=== PATIENT | female | born 1935 | race Caucasian/White ===

== ENCOUNTER 2020-07-16 20:10 | Emergency (ER) | payer MEDICARE, BC, SELFPAY ==
[2020-07-16 20:12] VITALS: BP 130/60; PULSE 79; RESP 20; TEMP 36.5; O2SAT 97
--- NOTE | 2020-07-16 20:28 | DI.CT.S_ITS ---
PROCEDURE: CT STROKE INDICATIONS: gait disturbance, global disorientation TECHNIQUE: Noncontrast 4.5 mm thick angled axial sections acquired from the foramen magnum to the vertex, with coronal reformats. For radiation dose reduction, the following was used: automated exposure control, adjustment of mA and/or kV according to patient size. COMPARISON: None. FINDINGS: Image quality: Excellent. CSF spaces: Basal cisterns are patent. No extra-axial fluid collections. The ventricles are symmetric in size and shape. Brain: No intracranial bleeds or masses. There is cerebral volume loss for age, with resultant ventricular and sulcal prominence. There are periventricular and deep white matter chronic small vessel ischemic changes. There is intracranial internal carotid artery atherosclerosis. Skull and face: Calvarium and visualized facial bones appear intact, without suspicious lesions. Sinuses: Visualized sinuses and mastoids are clear. IMPRESSION: Mild microvascular atherosclerotic change in the deep white matter of each hemisphere, no sign of hemorrhage or stroke, no skull base arterial thrombosis is found. Findings called to the emergency room physician caring for the patient at 8:50 p.m. This study fulfills neurological imaging criteria for inclusion or exclusion of acute stroke therapies based on available published neurological guidelines. Dictated by: Tanner Calvo M.D. on 07/16/2020 at 20:48 Approved by: Tanner Calvo M.D. on 07/16/2020 at 20:51
[2020-07-16 20:55] VITALS: BP 173/74; PULSE 70; O2SAT 98
[2020-07-16 21:00] VITALS: BP 164/71; PULSE 64; RESP 15; O2SAT 98
[2020-07-16 21:01] LABS: Add Manual Diff / Slide Review NO; Basophils Absolute Auto 100 /uL (0-100); Basophils Percent Auto 0.9 % (0-2); Eosinophils Absolute Auto 200 /uL (0-450); Eosinophils Percent Auto 2.5 % (2-4); Hematocrit 33.2 % (36-46); Hemoglobin 11.6 g/dL (12.0-16.0); Lymphocytes Absolute Auto 2000 /uL (1100-4500); Lymphocytes Percent Auto 26.2 % (25-40); Mean Corpuscular HGB Conc 34.9 % (30-36); Mean Corpuscular Hemoglobin 32.3 PG (26-34); Mean Corpuscular Volume 92.5 fL (80-100); Monocytes Absolute Auto 600 /uL (0-900); Monocytes Percent Auto 7.6 % (3-14); Neutrophils Absolute Auto 4800 /uL (1500-7000); Neutrophils Percent Auto 62.8 % (50-75); Platelet Count 169 X10^3/uL (150-400); Red Blood Cell Count 3.59 X10^6/uL (4.0-5.2); Red Cell Distribution Width 14.2 % (11.6-14.8); White Blood Cell Count 7.6 X10^3/uL (4.5-11.0)
[2020-07-16 21:08] LABS: Prothrombin Time 11.7 SECONDS (10.1-12.7)
[2020-07-16 21:11] LABS: PTT Partial Thromboplastin Tim 42 SECONDS (26.4-36.2)
[2020-07-16 21:13] LABS: Alanine Aminotransferase 22 IU/L (<35); Albumin Globulin Ratio 1.4 (1.0-2.8); Alkaline Phosphatase 77 U/L (38-126); Aspartate Aminotransferase 30 IU/L (14-36); BUN Creatinine Ratio 22.3 (6-22); Bilirubin Total 0.4 mg/dL (0.2-1.3); Blood Urea Nitrogen 21 mg/dL (7-17); Calcium 8.8 mg/dL (8.4-10.2); Carbon Dioxide 26 mmol/L (22-32); Chloride 109 mmol/L (98-107); Creatine Kinase 57 U/L (30-135); Estimated Glomerular Filt Rate 56.7 mL/min (>60); Globulin 2.9 g/dL (1.7-4.1); Glucose 102 mg/dL (80-110); HEMOLYSIS < 15 (0-50); Potassium 3.4 mmol/L (3.4-5.1); Sodium 139 mmol/L (137-145); Total Protein 6.9 g/dL (6.3-8.2)
[2020-07-16 21:25] LABS: Troponin I < 0.012 ng/mL (0.01-0.034)
[2020-07-16 21:30] VITALS: BP 154/69; PULSE 63; RESP 19; O2SAT 99
[2020-07-16 22:00] VITALS: BP 137/65; PULSE 62; RESP 15; O2SAT 98
[2020-07-16] MEDS: SODIUM CHLORIDE 0.9% 1,000 ML 150 ML IV (22:02)
--- NOTE | 2020-07-16 22:02 | ED.NEUROSD ---
HPI - Neuro Symptoms/Deficit General Chief Complaint: Neuro Symptoms/Deficit Stated Complaint: feels disoriented Time Seen by Provider: 07/16/20 20:27 Source: patient and family Mode of arrival: Wheelchair History of Present Illness HPI Narrative: 84-year-old woman currently living at [facility] with no significant medical issues that reported history of decreased overall activity level presents complaining that she feels unwell. She is very vague in her findings. She reports she was sitting watching a movie today when she stood up she felt that ?something simply was not right. There are no acute neurologic findings, she describes no fever cough chills, chest pain, dyspnea, exertional dyspnea, lower extremity edema, abdominal pain, flank pain, dysuria, hematuria. She notes no headache or asymmetries to movement to use of her extremities. On Anticoagulants: No Related Data Home Medications Medication Instructions Recorded Confirmed atorvastatin 20 mg tablet 20 mg PO DAILY 04/25/20 04/25/20 Previous Rx's Medication Instructions Recorded acetaminophen 300 mg-codeine 30 mg 1 tab PO BID PRN #14 tab 04/25/20 tablet zolpidem 5 mg tablet 5 mg PO BEDTIME #30 tab 07/02/20 sulfamethoxazole-trimethoprim 1 tab PO BID #10 tab 07/16/20 [Bactrim DS] sulfamethoxazole-trimethoprim 1 tab PO BID #10 tab 07/16/20 [Bactrim DS] Allergies Allergy/AdvReac Type Severity Reaction Status Date / Time No Known Drug Allergies Allergy Unverified 04/25/20 13:45 Review of Systems Review of Systems ROS Unobtainable: All systems reviewed & are unremarkable except as noted in HPI and below Hematologic/Lymphatic On Anticoagulants: No Patient History Social History Smoking Status: Former smoker Smoking Status: Former smoker Exam Narrative Exam Narrative: General: Healthy appearing, in no acute distress. Cooperative and able to add to history. Well-nourished well-developed HEENT: Moist mucous membranes, normal sclera with reactive pupils, Neck: No JVD, supple Respiratory: Lungs are clear to auscultation, no wheezing no rales no rhonchi. Full and symmetrical air movement Cardiac: Regular rate and rhythm no murmurs no bruits Abdomen: Soft, nontender, good bowel tones, no flank pain Skin: Warm and dry, no rashes Neurologic: Globally slowed but Grossly neurologically intact with no obvious asymmetries or abnormalities Extremities: No trauma, well perfused Psych: Cooperative, appropriate insight and affect Initial Vital Signs Initial Vital Signs: Vital Signs Temperature 97.7 F 07/16/20 20:12 Pulse Rate 79 07/16/20 20:12 Respiratory Rate 20 07/16/20 20:12 Blood Pressure 130/60 07/16/20 20:12 Pulse Oximetry 97 07/16/20 20:12 Course Orders Ordered: ED Orders 07/16/20 20:28 CT Stroke Stat EKG-12 Lead Stat 07/16/20 20:55 Complete Blood Count AUTO DIFF Stat Comprehensive Metabolic Panel Stat Partial Thromboplastin Time Stat Prothrombin Time INR Stat Troponin & CK Cardiac Panel Stat 07/16/20 22:30 Urine Culture Stat Urine Microscopic Stat Discontinued Medications Sodium Chloride (Normal Saline 0.9%) 1,000 mls @ 150 mls/hr IV CONT MAGI Last Infusion: 07/16/20 22:46 Dose: 0 mls/hr Documented by: Admin: 07/16/20 22:02 Dose: 150 mls/hr Documented by: BLAKE Trimethoprim/Sulfamethoxazole (Trimeth/Sulfa 160/800 (Ds) Tablet) 1 tab PO NOW ONE Stop: 07/16/20 22:46 Last Admin: 07/16/20 22:49 Dose: 1 tab Documented by: BLAKE Vital Signs Vital signs: Vital Signs - 8 hr 07/16/20 20:12 07/16/20 20:55 07/16/20 21:00 Temperature 97.7 F Pulse Rate 79 70 64 Respiratory Rate 20 15 Blood Pressure 130/60 173/74 H 164/71 H Pulse Oximetry 97 98 98 07/16/20 21:30 07/16/20 22:00 Temperature Pulse Rate 63 62 Respiratory Rate 19 15 Blood Pressure 154/69 H 137/65 Pulse Oximetry 99 98 MDM - Neuro Symptoms/Deficit Medical Records Attestation: I reviewed the patient's medical records. Lab Data Attestation: I reviewed the patient's lab results. Result diagrams: 07/16/20 20:55 07/16/20 20:55 Labs: Lab Results 07/16/20 07/16/20 07/16/20 Range/Units 20:55 20:55 20:55 WBC 7.6 (4.5-11.0) X10^3/uL RBC 3.59 L (4.0-5.2) X10^6/uL Hgb 11.6 L (12.0-16.0) g/dL Hct 33.2 L (36-46) % MCV 92.5 (80-100) fL MCH 32.3 (26-34) PG MCHC 34.9 (30-36) % RDW 14.2 (11.6-14.8) % Plt Count 169 (150-400) X10^3/uL Neut % (Auto) 62.8 (50-75) % Lymph % (Auto) 26.2 (25-40) % [place] % (Auto) 7.6 (3-14) % Eos % (Auto) 2.5 (2-4) % Baso % (Auto) 0.9 (0-2) % Neut # (Auto) 4800 (4912-0498) /uL Lymph # (Auto) 2000 (6920-4831) /uL [place] # (Auto) 600 (0-900) /uL Eos # (Auto) 200 (0-450) /uL Baso # (Auto) 100 (0-100) /uL PT 11.7 (10.1-12.7) SECONDS INR 1.0 (0.9-1.3) APTT 42 H (26.4-36.2) SECONDS Sodium 139 (137-145) mmol/L Potassium 3.4 (3.4-5.1) mmol/L Chloride 109 H (98-107) mmol/L Carbon Dioxide 26 (22-32) mmol/L BUN 21 H (7-17) mg/dL Creatinine 0.94 (0.52-1.04) mg/dL Estimated GFR 56.7 L (>60) mL/min BUN/Creatinine Ratio 22.3 H (6-22) Glucose 102 (80-110) mg/dL Calcium 8.8 (8.4-10.2) mg/dL Total Bilirubin 0.4 (0.2-1.3) mg/dL AST 30 (14-36) IU/L ALT 22 (<35) IU/L Alkaline Phosphatase 77 (38-126) U/L Total Creatine Kinase 57 (30-135) U/L CK-MB (CK-2) TNP CK-MB (CK-2) Rel Index TNP Troponin I < 0.012 (0.01-0.034) ng/mL Total Protein 6.9 (6.3-8.2) g/dL Albumin 4.0 (3.5-5.0) g/dL Globulin 2.9 (1.7-4.1) g/dL Albumin/Globulin Ratio 1.4 (1.0-2.8) Urine RBC (0-5/HPF) Urine WBC (0-5/HPF) Ur Squamous Epith Cells (0-5/HPF) Urine Bacteria (None) Ur Culture Indicated? 07/16/20 Range/Units 22:30 WBC (4.5-11.0) X10^3/uL RBC (4.0-5.2) X10^6/uL Hgb (12.0-16.0) g/dL Hct (36-46) % MCV (80-100) fL MCH (26-34) PG MCHC (30-36) % RDW (11.6-14.8) % Plt Count (150-400) X10^3/uL Neut % (Auto) (50-75) % Lymph % (Auto) (25-40) % [place] % (Auto) (3-14) % Eos % (Auto) (2-4) % Baso % (Auto) (0-2) % Neut # (Auto) (7244-2290) /uL Lymph # (Auto) (2826-9451) /uL Haralson # (Auto) (0-900) /uL Eos # (Auto) (0-450) /uL Baso # (Auto) (0-100) /uL PT (10.1-12.7) SECONDS INR (0.9-1.3) APTT (26.4-36.2) SECONDS Sodium (137-145) mmol/L Potassium (3.4-5.1) mmol/L Chloride (98-107) mmol/L Carbon Dioxide (22-32) mmol/L BUN (7-17) mg/dL Creatinine (0.52-1.04) mg/dL Estimated GFR (>60) mL/min BUN/Creatinine Ratio (6-22) Glucose (80-110) mg/dL Calcium (8.4-10.2) mg/dL Total Bilirubin (0.2-1.3) mg/dL AST (14-36) IU/L ALT (<35) IU/L Alkaline Phosphatase (38-126) U/L Total Creatine Kinase (30-135) U/L CK-MB (CK-2) CK-MB (CK-2) Rel Index Troponin I (0.01-0.034) ng/mL Total Protein (6.3-8.2) g/dL Albumin (3.5-5.0) g/dL Globulin (1.7-4.1) g/dL Albumin/Globulin Ratio (1.0-2.8) Urine RBC None seen (0-5/HPF) Urine WBC 5-10/hpf H (0-5/HPF) Ur Squamous Epith Cells 1-5 /hpf (0-5/HPF) Urine Bacteria Many (>30) H (None) Ur Culture Indicated? Specimen cultured Point of Care Testing Glucose POC 104 Urine Dip Bedside Urine Glucose Negative Bedside Urine Bilirubin - Negative Bedside Urine Ketone - Negative Urine Specific [place] 1.015 Bedside Urine Occult Blood - Negative Bedside Urine pH 6.0 Bedside Urine Protein - Negative Bedside Urine Urobilinogen - Negative Bedside Urine Nitrite + Positive Bedside Urine Leukocytes + [address] scan - head: Radiologist's Impression: FINDINGS: Image quality: Excellent. CSF spaces: Basal cisterns are patent. No extra-axial fluid collections. The ventricles are symmetric in size and shape. Brain: No intracranial bleeds or masses. There is cerebral volume loss for age, with resultant ventricular and sulcal prominence. There are periventricular and deep white matter chronic small vessel ischemic changes. There is intracranial internal carotid artery atherosclerosis. Skull and face: Calvarium and visualized facial bones appear intact, without suspicious lesions. Sinuses: Visualized sinuses and mastoids are clear. IMPRESSION: Mild microvascular atherosclerotic change in the deep white matter of each hemisphere, no sign of hemorrhage or stroke, no skull base arterial thrombosis is found. Findings called to the emergency room physician caring for the patient at 8:50 p.m. This study fulfills neurological imaging criteria for inclusion or exclusion of acute stroke therapies based on available published neurological guidelines. Dictated by: Tanner Calvo M.D. on 07/16/2020 at 20:48 ECG Data Attestation: I personally reviewed and interpreted this ECG as follows: Interpretation: Sinus rhythm at a rate of 66 Normal axis, normal intervals No acute ischemic changes MDM Narrative Medical decision making narrative: 84-year-old woman who is in assisted living facility. Her daughter notes that she sits most of the time and does not drink enough water. Apparently she was watching a movie she went to stand up today and just felt that something was off. She could not be more specific than that. Workup is entirely benign. No evidence of a stroke, CT scan is unremarkable, lab work is reassuring with no evidence of acute coronary syndrome, liver failure, renal failure. She has mild stable anemia. Clinical exam is entirely benign. Urine dip has both leukocytes and nitrates. Going to opt to treat that as a urinary tract infection with 5 days of Septra 1st dose given in the emergency department. Urine has been sent to the lab. At this point patient is safe for home discharge Discharge Plan Departure Patient Disposition: Home Clinical Impression: Acute UTI Instructions: DI for Urinary Tract Infection (UTI) Activity Restrictions/Additional Instructions: Thank you for coming in today Your workup was very reassuring. There is no evidence of life-threatening issues. Specifically you are not having a stroke, heart attack, kidney failure, liver failure, overwhelming infection or severe dehydration. Your urinalysis does look like he may be developing a bladder infection. I have given you a single dose of Septra, and antibiotic, in the emergency room tonight and have given you a prescription to fill tomorrow. Please take 1 pill in the morning 1 pill at night for the next 5 days. If you feel that you are getting worse, please return to the emergency department Prescriptions: New sulfamethoxazole-trimethoprim [Bactrim DS] 800-160 mg tablet 1 tab PO BID Qty: 10 RF: 0 sulfamethoxazole-trimethoprim [Bactrim DS] 800-160 mg tablet 1 tab PO BID Qty: 10 RF: 0 No Action zolpidem 5 mg tablet 5 mg PO BEDTIME Qty: 30 RF: 3 atorvastatin 20 mg tablet 20 mg PO DAILY RF: 0 acetaminophen-codeine 300-30 mg tablet 1 tab PO BID PRN (Reason: pain) Qty: 14 RF: 0 Referrals: Arnol Diego MD [Primary Care Provider] -
[2020-07-16 22:38] LABS: RBC Urine None Seen (0-5/HPF)
[2020-07-16 22:46] LABS: Bacteria Urine Many (>30); Squamous Epithelial Cell Urine 1-5 /HPF (0-5/HPF); WBC Urine 5-10/HPF (0-5/HPF)
[2020-07-16 22:47] LABS: Culture Indicated Urine Specimen Cultured
[2020-07-16] MEDS: TRIMETH/SULFA 160/800 (DS) TABLET 1 TAB PO (22:49)
== END 2020-07-16 22:55 | disposition home or self-care (01) ==
PROVIDERS: Emergency Provider Emergency Medicine; PCP Student in an Organized Health Care Education/Training Program
DX: N39.0 Urinary tract infection, site not specified (principal)
CPT/HCPCS: 36415; 70450; 80053; 81003; 81015; 82550; 82962; 84484; 85025; 85610; 85730; 87077; 87086; 87186; 93005; 96360; 99284

== ENCOUNTER → 2020-09-10 15:23 | Outpatient (CLI) | payer MEDICARE, BC, SELFPAY ==
[2020-09-10 16:15] LABS: Cholesterol 220 mg/dL (140-199); HDL Cholesterol 65 mg/dL (40-60); LDL Cholesterol Calculated 106 mg/dL (<100); Triglycerides 247 mg/dL (35-150)
== END ==
PROVIDERS: PCP Student in an Organized Health Care Education/Training Program; Referring Provider Student in an Organized Health Care Education/Training Program; Visit Provider Student in an Organized Health Care Education/Training Program
DX: E78.2 Mixed hyperlipidemia (principal)
CPT/HCPCS: 36415; 80061

== ENCOUNTER → 2021-08-18 08:27 | Outpatient (CLI) | payer MEDICARE, BC, SELFPAY ==
[2021-08-18 10:19] LABS: Add Manual Diff / Slide Review NO; Basophils Absolute Auto 0 /uL (0-100); Basophils Percent Auto 0.6 % (0-2); Eosinophils Absolute Auto 100 /uL (0-450); Eosinophils Percent Auto 2.1 % (2-4); Hematocrit 35.5 % (36-46); Hemoglobin 12.5 g/dL (12.0-16.0); Lymphocytes Absolute Auto 1800 /uL (1100-4500); Lymphocytes Percent Auto 27.3 % (25-40); Mean Corpuscular HGB Conc 35.2 % (30-36); Mean Corpuscular Hemoglobin 32.3 PG (26-34); Mean Corpuscular Volume 91.8 fL (80-100); Monocytes Absolute Auto 400 /uL (0-900); Monocytes Percent Auto 6.7 % (3-14); Neutrophils Absolute Auto 4100 /uL (1500-7000); Neutrophils Percent Auto 63.3 % (50-75); Platelet Count 177 X10^3/uL (150-400); Red Blood Cell Count 3.86 X10^6/uL (4.0-5.2); Red Cell Distribution Width 14.3 % (11.6-14.8); White Blood Cell Count 6.5 X10^3/uL (4.5-11.0)
[2021-08-18 10:33] LABS: Alanine Aminotransferase 22 IU/L (<35); Albumin Globulin Ratio 1.5 (1.0-2.8); Alkaline Phosphatase 88 U/L (38-126); Aspartate Aminotransferase 27 IU/L (14-36); BUN Creatinine Ratio 18.2 (6-22); Blood Urea Nitrogen 16 mg/dL (7-17); Calcium 9.1 mg/dL (8.4-10.2); Carbon Dioxide 20 mmol/L (22-32); Chloride 112 mmol/L (98-107); Cholesterol 196 mg/dL (140-199); Estimated Glomerular Filt Rate > 60.0 mL/min (>60); Globulin 2.7 g/dL (1.7-4.1); Glucose 95 mg/dL (80-110); HDL Cholesterol 76 mg/dL (40-60); HEMOLYSIS < 15 (0-50); LDL Cholesterol Calculated 89 mg/dL (<100); Potassium 4.3 mmol/L (3.4-5.1); Sodium 144 mmol/L (137-145); Total Protein 6.7 g/dL (6.3-8.2); Triglycerides 157 mg/dL (35-150)
== END ==
PROVIDERS: PCP Family Medicine; Referring Provider Family Medicine; Visit Provider Family Medicine
DX: Z13.9 Encounter for screening, unspecified (principal); E78.2 Mixed hyperlipidemia; R60.0 Localized edema
CPT/HCPCS: 36415; 80053; 80061; 85025

== ENCOUNTER → 2022-12-10 14:37 | Outpatient (CLI) | payer MEDICARE, BC, SELFPAY ==
--- NOTE | 2022-12-10 14:39 | DI.ECHO.S_ITS ---
[facility]---------+ [facility] +---------+ : : [address] : : : : [id number] : : : : Phone: [phone]---------+ Echocardiogram Report + + :Name: JAVIER SHABAZZ Study Date: 12/10/2022 Height: 60 in : :[facility] ReadingLocation: Weight: 170 lb : : Gender: Female BSA: 1.7 m2 : :: 1935 Age: 87 yrs BP: 139/78 mmHg: :Reason For Study: Lower Extremity Edema : :Ordering Physician: KIEL, : :CHRISTOPHER Performed By: Alejandrina Sanford : :Referring: CHRISTOPHER DYSON : + + Interpretation Summary A two-dimensional transthoracic echocardiogram with color flow and Doppler was performed in limited views only. The ejection fraction is estimated to be 60-65%. There are no obvious focal wall motion abnormalities noted but poor endocardial definition reduces the sensitivity for the detection of such. The right ventricular systolic pressure is estimated to be at least 27 mmHg based on an estimated right atrial pressure of 3 mm Hg. Procedure: A two-dimensional transthoracic echocardiogram with color flow and Doppler was performed in limited views only. The study quality was technically adequate. There is no prior echocardiogram noted for this patient. Left Ventricle: The left ventricle is normal in size. The ejection fraction is estimated to be 60-65%. There are no obvious focal wall motion abnormalities noted but poor endocardial definition reduces the sensitivity for the detection of such. Tricuspid Valve: There is trace tricuspid regurgitation. The right ventricular systolic pressure is estimated to be at least 27 mmHg based on an estimated right atrial pressure of 3 mm Hg. Great Vessels: The IVC is of normal diameter and collapses greater than 50% with a sniff. This suggests a low right atrial pressure of 3 mm Hg. Pericardium/ Pleura There is no pericardial effusion. MMode/2D Measurements & Calculations LVLs ap4: 3.8 cm LVLd ap2: 5.5 cm LVLs ap2: 4.9 cm Doppler Measurements & Calculations TR max francesco: 243.5 cm/sec TR max P.0 mmHg Reading Physician:BIA
== END ==
PROVIDERS: PCP Family Medicine; Referring Provider Family Medicine; Visit Provider Family Medicine
DX: R60.0 Localized edema (principal)
CPT/HCPCS: 93307

== ENCOUNTER → 2023-06-16 13:15 | Outpatient (CLI) | payer MEDICARE, BC, SELFPAY | PROVIDERS: PCP Family Medicine; Visit Provider Nurse Practitioner Family | DX: R30.0 Dysuria (principal) | CPT/HCPCS: 87086 ==

== ENCOUNTER 2024-06-07 16:04 | Inpatient (IN) | payer MEDICARE, OTHER, SELFPAY ==
[2024-06-07] VITALS (25 sets, daily range): BP systolic 102–205; BP diastolic 59–114; PULSE 91–99; RESP 15–26; TEMP 37.1–38.4; O2SAT 93–96; BMI 32.1
--- NOTE | 2024-06-07 16:11 | ED.FALL ---
HPI - Fall <Cuong Mayes DO - Last Filed: 06/15/24 07:00> General Chief Complaint: Fall Stated Complaint: Fall-Hip Pain Time Seen by Provider: 06/07/24 16:10 History of Present Illness HPI Narrative: 88-year-old female history of hyperlipidemia, dementia, comes into the ED from facility via EMS for evaluation of fall. According to EMS patient had 2 falls earlier today. Patient states that she fell twice the 1st time was attempting to get out of her chair, states that at that time she was able to get up and ambulate to her baseline with her walker, she states that the 2nd time was using her walker when she tripped and fell. She states at that time she did fall to her left side landing on left hip left head denies any loss of consciousness not on any blood thinners.. Patient states that she is currently feeling completely normal, states that she does have a history of left hip pain is in the process of seeing orthopedic surgery for this, states that it is not any worse or any better than normal. At time of evaluation patient A&O x4 moving all 4 extremities appropriately NIH of 0 Related Data Previous Rx's Medication Instructions Recorded hydrocodone 5 mg-acetaminophen 325 1 tab PO Q4H PRN Pain, Moderate 06/11/24 mg tablet (4-6) #20 tabs zolpidem 5 mg tablet 5 mg PO BEDTIME #30 tabs 06/11/24 Allergies Allergy/AdvReac Type Severity Reaction Status Date / Time No Known Drug Allergies Allergy Verified 06/07/24 16:11 Review of Systems <Cuong Mayes DO - Last Filed: 06/15/24 07:00> Review of Systems Narrative: General: Ground level fall, Denies fever, chills, weight loss HEENT: Denies headache, eye drainage, eye irritation, head trauma, sore throat, voice change Cardiovascular: Denies any chest pain, palpitations, shortness of breath, tachycardia Respiratory: Denies any shortness of breath, cough, wheeze, stridor GI/: Denies any abdominal pain, nausea, vomiting, diarrhea, bright red blood per rectum, melanotic stools, urinary frequency, urinary retention, dysuria, hematuria MSK: Positive left hip pain, Skin: Denies any rashes, lesions, discoloration Neuro: Denies any headache, lightheadedness, dizziness, fainting, weakness Psych: Denies SI/HI Patient History <Cuong Mayes DO - Last Filed: 06/15/24 07:00> Medical History Dementia Social History household members: none Smoking Status: Former smoker second hand exposure: No alcohol intake: current substance use type: does not use Smoking Status: Former smoker Exam <Cuong Mayes DO - Last Filed: 06/15/24 07:00> Narrative Exam Narrative: General: Cooperative, comfortable, well-developed, not in acute distress HEENT: Normocephalic, atraumatic, PERRLA, normal sclera, eyelids normal, Neck: Active full range of motion, atraumatic Chest: Normal to inspection, negative crepitus, no overlying erythema ecchymosis Respiratory: Normal respiratory effort, not in acute respiratory distress, clear to auscultation bilaterally negative cough, wheeze, tachypnea, rhonchi, rales Cardiology: Regular rate rhythm negative gallop, murmur, rubs GI/: Normal to inspection, soft, nonrigid, no tenderness to palpation, exam deferred MSK: Full range of active range of motion of all 4 extremities, atraumatic, no tenderness to palpation of any bony prominences neurovascularly intact bilateral upper and lower extremities Skin: No rashes lesions noted Neuro: Alert awake oriented x3, moves all 4 extremities spontaneously, cranial nerves intact, able to answer all questions appropriately follows commands appropriately, NIH of 0 Psych: Cooperative, negative suicidal or homicidal ideations Initial Vital Signs Initial Vital Signs: Vital Signs Pulse Oximetry 96 06/07/24 16:09 <Ramon Galeas DO - Last Filed: 06/07/24 22:06> Initial Vital Signs Initial Vital Signs: Vital Signs Pulse Oximetry 96 06/07/24 16:09 Course <Cuong Mayes DO - Last Filed: 06/15/24 07:00> Orders Ordered: Discontinued Medications Acetaminophen (Acetaminophen 325 Mg Tablet) 650 mg PO Q6H PRN PRN Reason: Fever/Mild Pain (1-3) Last Admin: 06/07/24 21:10 Dose: 650 mg Documented By: BRITTNY Hydrocodone Bitart/Acetaminophen (Hydrocodone/Acet 5/325 Tablet) 1 tab PO Q4H PRN PRN Reason: Pain, Moderate (4-6) Haloperidol (Haloperidol 5 Mg/Ml Vial) 5 mg IV NOW ONE Stop: 06/09/24 01:04 Last Admin: 06/09/24 02:01 Dose: 5 mg Documented By: ASAD Heparin Sodium (Porcine) (Heparin 5,000 Unit/Ml Vial) 5,000 unit SUBCUT BID [facility] Last Admin: 06/11/24 09:53 Dose: 5,000 unit Documented By: Admin: 06/10/24 21:12 Dose: Not Given Documented By: Admin: 06/10/24 10:23 Dose: 5,000 unit Documented By: Admin: 06/09/24 20:35 Dose: Not Given Documented By: ANJU Hydromorphone HCl (Hydromorphone 0.5 Mg Inj) 0.5 mg IV Q2H PRN PRN Reason: Pain, Severe (7-10) Last Admin: 06/09/24 03:25 Dose: 0.5 mg Documented By: Admin: 06/08/24 02:05 Dose: 0.5 mg Documented By: Admin: 06/07/24 23:13 Dose: 0.5 mg Documented By: JEAN Ceftriaxone Sodium 1,000 mg/ (Sodium Chloride) 100 mls @ 200 mls/hr IV NOW ONE Stop: 06/07/24 18:49 Last Infusion: 06/07/24 20:20 Dose: Infused Documented By: Admin: 06/07/24 19:46 Dose: 200 mls/hr Documented By: BRITTNY Sodium Chloride (Normal Saline 0.9%) 1,000 mls @ 75 mls/hr IV CONT [facility] Last Infusion: 06/09/24 09:14 Dose: 0 mls/hr Documented By: Admin: 06/08/24 23:27 Dose: 75 mls/hr Documented By: Infusion: 06/08/24 23:26 Dose: Infused Documented By: Admin: 06/08/24 10:06 Dose: 75 mls/hr Documented By: Infusion: 06/08/24 10:06 Dose: Infused Documented By: Infusion: 06/07/24 23:30 Dose: 75 mls/hr Documented By: Infusion: 06/07/24 22:04 Dose: 0 mls/hr Documented By: Admin: 06/07/24 20:22 Dose: 75 mls/hr Documented By: BRITTNY Ceftriaxone Sodium 1,000 mg/ (Sodium Chloride) 100 mls @ 200 mls/hr IV Q24H [facility]I Last Admin: 06/10/24 20:53 Dose: 200 mls/hr Documented By: Infusion: 06/09/24 23:54 Dose: Infused Documented By: Admin: 06/09/24 20:18 Dose: 200 mls/hr Documented By: Infusion: 06/09/24 00:33 Dose: Infused Documented By: Admin: 06/08/24 21:41 Dose: 200 mls/hr Documented By: ASAD Magnesium Sulfate (Magnesium Sulfate) 20 gm in 500 mls @ 50 mls/hr IV CONT [facility] Last Admin: 06/09/24 03:14 Dose: Not Given Documented By: ASAD Magnesium Sulfate (Magnesium Sulfate) 2 gm in 50 mls @ 25 mls/hr IV NOW ONE Stop: 06/09/24 05:10 Last Infusion: 06/09/24 05:53 Dose: Infused Documented By: ASAD Co-signed By: TALON Admin: 06/09/24 03:22 Dose: 25 mls/hr Documented By: ASAD Co-signed By: TALON Lidocaine HCl (Lidocaine 2% (Glydo) 6 Ml Gel) 6 ml TOP NOW ONE Stop: 06/07/24 17:02 Last Admin: 06/07/24 17:15 Dose: 6 ml Documented By: BRITTNY Magnesium Chloride (Magnesium Chloride 64 Mg Tablet) 128 mg PO NOW ONE Stop: 06/09/24 07:31 Last Admin: 06/09/24 08:26 Dose: 128 mg Documented By: MARLEE Morphine Sulfate (Morphine 2 Mg/Ml Inj) 2 mg IV NOW ONE Stop: 06/07/24 17:07 Last Admin: 06/07/24 17:10 Dose: 2 mg Documented By: BRITTNY Morphine Sulfate (Morphine 2 Mg/Ml Inj) 2 mg IV NOW ONE Stop: 06/07/24 17:29 Last Admin: 06/07/24 17:35 Dose: 2 mg Documented By: BRITTNY Naloxone HCl (Naloxone 0.4 Mg/Ml Vial) 0.2 mg IV Q2MIN PRN PRN Reason: Opiate Reversal Ondansetron HCl (Ondansetron 4 Mg/2 Ml Inj) 4 mg IV Q8HR PRN PRN Reason: Nausea And Vomiting Oseltamivir Phosphate (Oseltamivir 75 Mg Capsule) 75 mg PO BID [facility] Last Admin: 06/11/24 09:53 Dose: 75 mg Documented By: Admin: 06/10/24 20:53 Dose: 75 mg Documented By: Admin: 06/10/24 10:23 Dose: 75 mg Documented By: Admin: 06/09/24 20:18 Dose: 75 mg Documented By: Admin: 06/09/24 08:26 Dose: 75 mg Documented By: Admin: 06/08/24 22:02 Dose: Not Given Documented By: Admin: 06/08/24 13:30 Dose: 75 mg Documented By: MARLEE Potassium Chloride (Potassium Chloride 20 Meq/15 Ml Udc) 40 meq PO NOW ONE Stop: 06/09/24 06:00 Last Admin: 06/09/24 06:39 Dose: 40 meq Documented By: ASAD Potassium Phos/Sodium Phos (Sodium,Potassium Phosphates Packet) 2 each PO NOW ONE Stop: 06/10/24 08:16 Last Admin: 06/10/24 10:23 Dose: 2 each Documented By: TAPAN Quetiapine Fumarate (Quetiapine 25 Mg Tablet) 12.5 mg PO Q4H PRN PRN Reason: mild agitation Last Admin: 06/09/24 23:53 Dose: 12.5 mg Documented By: Admin: 06/09/24 18:27 Dose: 12.5 mg Documented By: MARLEE Quetiapine Fumarate (Quetiapine 100 Mg Tablet) 100 mg PO BID [facility] Quetiapine Fumarate (Quetiapine 25 Mg Tablet) 25 mg PO BEDTIME [facility] Last Admin: 06/10/24 20:53 Dose: 25 mg Documented By: Admin: 06/09/24 20:18 Dose: 25 mg Documented By: ANJU Sodium Chloride (Sodium Chloride 0.9% Flush) 10 ml IV BID [facility] Last Admin: 06/11/24 09:54 Dose: 10 ml Documented By: Admin: 06/10/24 21:18 Dose: 10 ml Documented By: Admin: 06/10/24 10:23 Dose: 10 ml Documented By: Admin: 06/09/24 20:18 Dose: 10 ml Documented By: Admin: 06/09/24 08:26 Dose: 10 ml Documented By: Admin: 06/08/24 21:44 Dose: 10 ml Documented By: ASAD Sodium Chloride (Sodium Chloride 0.9% Flush) 10 ml IV PRN PRN PRN Reason: Flush Last Admin: 06/09/24 02:03 Dose: 10 ml Documented By: ASAD Zolpidem Tartrate (Zolpidem 5 Mg Tablet) 5 mg PO BEDTIME [facility] Last Admin: 06/10/24 20:53 Dose: 5 mg Documented By: Admin: 06/09/24 23:53 Dose: 5 mg Documented By: Admin: 06/08/24 21:43 Dose: 5 mg Documented By: Admin: 06/07/24 23:13 Dose: 5 mg Documented By: JEAN Vital Signs Vital signs: Vital Signs - 8 hr 06/07/24 16:09 06/07/24 16:11 06/07/24 16:13 Temperature 98.7 F Pulse Rate 99 H 96 H Respiratory Rate 15 Blood Pressure 205/95 H Pulse Oximetry 96 96 96 Oxygen Delivery Method Room Air 06/07/24 16:13 06/07/24 16:37 06/07/24 16:39 Temperature Pulse Rate 96 H 96 H Respiratory Rate Blood Pressure 139/82 Pulse Oximetry 96 95 Oxygen Delivery Method 06/07/24 16:39 06/07/24 16:58 06/07/24 16:58 Temperature Pulse Rate 96 H Respiratory Rate 26 H Blood Pressure 196/86 H 175/94 H Pulse Oximetry 96 Oxygen Delivery Method 06/07/24 17:00 06/07/24 17:00 06/07/24 17:30 Temperature Pulse Rate 96 H Respiratory Rate 24 Blood Pressure 181/95 H 171/114 H Pulse Oximetry 96 Oxygen Delivery Method 06/07/24 17:30 06/07/24 17:53 06/07/24 17:53 Temperature 99.7 F H Pulse Rate 95 H 94 H Respiratory Rate 24 21 Blood Pressure 102/69 Pulse Oximetry 96 95 Oxygen Delivery Method 06/07/24 18:00 06/07/24 18:00 06/07/24 18:15 Temperature 99.5 F 99.7 F H Pulse Rate 92 H 93 H Respiratory Rate 19 20 Blood Pressure 146/67 H Pulse Oximetry 95 96 Oxygen Delivery Method 06/07/24 18:15 06/07/24 18:30 06/07/24 18:30 Temperature 99.9 F H Pulse Rate 92 H Respiratory Rate 19 Blood Pressure 167/76 H 162/76 H Pulse Oximetry 94 Oxygen Delivery Method Room Air 06/07/24 18:45 06/07/24 18:45 06/07/24 19:00 Temperature 100.0 F H 100.2 F H Pulse Rate 92 H 91 H Respiratory Rate 24 19 Blood Pressure 162/74 H Pulse Oximetry 95 95 Oxygen Delivery Method 06/07/24 19:00 06/07/24 19:30 06/07/24 19:30 Temperature 100.4 F H Pulse Rate 91 H Respiratory Rate 24 Blood Pressure 161/73 H 152/68 H Pulse Oximetry 94 Oxygen Delivery Method 06/07/24 20:00 06/07/24 20:00 06/07/24 20:30 Temperature 100.6 F H 100.8 F H Pulse Rate 94 H 92 H Respiratory Rate 24 21 Blood Pressure 168/74 H Pulse Oximetry 96 95 Oxygen Delivery Method 06/07/24 21:00 06/07/24 21:01 06/07/24 21:01 Temperature 100.9 F H 100.9 F H Pulse Rate 95 H 97 H Respiratory Rate 20 24 Blood Pressure 160/70 H 160/70 H Pulse Oximetry 95 96 Oxygen Delivery Method 06/07/24 21:10 Temperature 101.1 F H Pulse Rate Respiratory Rate Blood Pressure Pulse Oximetry Oxygen Delivery Method <Ramon Galeas DO - Last Filed: 06/07/24 22:06> Orders Ordered: Discontinued Medications Acetaminophen (Acetaminophen 325 Mg Tablet) 650 mg PO Q6H PRN PRN Reason: Fever/Mild Pain (1-3) Last Admin: 06/07/24 21:10 Dose: 650 mg Documented By: BRITTNY Hydrocodone Bitart/Acetaminophen (Hydrocodone/Acet 5/325 Tablet) 1 tab PO Q4H PRN PRN Reason: Pain, Moderate (4-6) Haloperidol (Haloperidol 5 Mg/Ml Vial) 5 mg IV NOW ONE Stop: 06/09/24 01:04 Last Admin: 06/09/24 02:01 Dose: 5 mg Documented By: ASAD Heparin Sodium (Porcine) (Heparin 5,000 Unit/Ml Vial) 5,000 unit SUBCUT BID [facility] Last Admin: 06/11/24 09:53 Dose: 5,000 unit Documented By: Admin: 06/10/24 21:12 Dose: Not Given Documented By: Admin: 06/10/24 10:23 Dose: 5,000 unit Documented By: Admin: 06/09/24 20:35 Dose: Not Given Documented By: ANJU Hydromorphone HCl (Hydromorphone 0.5 Mg Inj) 0.5 mg IV Q2H PRN PRN Reason: Pain, Severe (7-10) Last Admin: 06/09/24 03:25 Dose: 0.5 mg Documented By: Admin: 06/08/24 02:05 Dose: 0.5 mg Documented By: Admin: 06/07/24 23:13 Dose: 0.5 mg Documented By: JEAN Ceftriaxone Sodium 1,000 mg/ (Sodium Chloride) 100 mls @ 200 mls/hr IV NOW ONE Stop: 06/07/24 18:49 Last Infusion: 06/07/24 20:20 Dose: Infused Documented By: Admin: 06/07/24 19:46 Dose: 200 mls/hr Documented By: BRITTNY Sodium Chloride (Normal Saline 0.9%) 1,000 mls @ 75 mls/hr IV CONT [facility] Last Infusion: 06/09/24 09:14 Dose: 0 mls/hr Documented By: Admin: 06/08/24 23:27 Dose: 75 mls/hr Documented By: Infusion: 06/08/24 23:26 Dose: Infused Documented By: Admin: 06/08/24 10:06 Dose: 75 mls/hr Documented By: Infusion: 06/08/24 10:06 Dose: Infused Documented By: Infusion: 06/07/24 23:30 Dose: 75 mls/hr Documented By: Infusion: 06/07/24 22:04 Dose: 0 mls/hr Documented By: Admin: 06/07/24 20:22 Dose: 75 mls/hr Documented By: BRITTNY Ceftriaxone Sodium 1,000 mg/ (Sodium Chloride) 100 mls @ 200 mls/hr IV Q24H MAGI Last Admin: 06/10/24 20:53 Dose: 200 mls/hr Documented By: Infusion: 06/09/24 23:54 Dose: Infused Documented By: Admin: 06/09/24 20:18 Dose: 200 mls/hr Documented By: Infusion: 06/09/24 00:33 Dose: Infused Documented By: Admin: 06/08/24 21:41 Dose: 200 mls/hr Documented By: ASAD Magnesium Sulfate (Magnesium Sulfate) 20 gm in 500 mls @ 50 mls/hr IV CONT [facility] Last Admin: 06/09/24 03:14 Dose: Not Given Documented By: ASAD Magnesium Sulfate (Magnesium Sulfate) 2 gm in 50 mls @ 25 mls/hr IV NOW ONE Stop: 06/09/24 05:10 Last Infusion: 06/09/24 05:53 Dose: Infused Documented By: ASAD Co-signed By: TALON Admin: 06/09/24 03:22 Dose: 25 mls/hr Documented By: ASAD Co-signed By: TALON Lidocaine HCl (Lidocaine 2% (Glydo) 6 Ml Gel) 6 ml TOP NOW ONE Stop: 06/07/24 17:02 Last Admin: 06/07/24 17:15 Dose: 6 ml Documented By: BRITTNY Magnesium Chloride (Magnesium Chloride 64 Mg Tablet) 128 mg PO NOW ONE Stop: 06/09/24 07:31 Last Admin: 06/09/24 08:26 Dose: 128 mg Documented By: MARLEE Morphine Sulfate (Morphine 2 Mg/Ml Inj) 2 mg IV NOW ONE Stop: 06/07/24 17:07 Last Admin: 06/07/24 17:10 Dose: 2 mg Documented By: BRITTNY Morphine Sulfate (Morphine 2 Mg/Ml Inj) 2 mg IV NOW ONE Stop: 06/07/24 17:29 Last Admin: 06/07/24 17:35 Dose: 2 mg Documented By: BRITTNY Naloxone HCl (Naloxone 0.4 Mg/Ml Vial) 0.2 mg IV Q2MIN PRN PRN Reason: Opiate Reversal Ondansetron HCl (Ondansetron 4 Mg/2 Ml Inj) 4 mg IV Q8HR PRN PRN Reason: Nausea And Vomiting Oseltamivir Phosphate (Oseltamivir 75 Mg Capsule) 75 mg PO BID [facility] Last Admin: 06/11/24 09:53 Dose: 75 mg Documented By: Admin: 06/10/24 20:53 Dose: 75 mg Documented By: Admin: 06/10/24 10:23 Dose: 75 mg Documented By: Admin: 06/09/24 20:18 Dose: 75 mg Documented By: Admin: 06/09/24 08:26 Dose: 75 mg Documented By: Admin: 06/08/24 22:02 Dose: Not Given Documented By: Admin: 06/08/24 13:30 Dose: 75 mg Documented By: MARLEE Potassium Chloride (Potassium Chloride 20 Meq/15 Ml Udc) 40 meq PO NOW ONE Stop: 06/09/24 06:00 Last Admin: 06/09/24 06:39 Dose: 40 meq Documented By: ASAD Potassium Phos/Sodium Phos (Sodium,Potassium Phosphates Packet) 2 each PO NOW ONE Stop: 06/10/24 08:16 Last Admin: 06/10/24 10:23 Dose: 2 each Documented By: TAPAN Quetiapine Fumarate (Quetiapine 25 Mg Tablet) 12.5 mg PO Q4H PRN PRN Reason: mild agitation Last Admin: 06/09/24 23:53 Dose: 12.5 mg Documented By: Admin: 06/09/24 18:27 Dose: 12.5 mg Documented By: MARLEE Quetiapine Fumarate (Quetiapine 100 Mg Tablet) 100 mg PO BID [facility] Quetiapine Fumarate (Quetiapine 25 Mg Tablet) 25 mg PO BEDTIME [facility] Last Admin: 06/10/24 20:53 Dose: 25 mg Documented By: Admin: 06/09/24 20:18 Dose: 25 mg Documented By: ANJU Sodium Chloride (Sodium Chloride 0.9% Flush) 10 ml IV BID [facility] Last Admin: 06/11/24 09:54 Dose: 10 ml Documented By: Admin: 06/10/24 21:18 Dose: 10 ml Documented By: Admin: 06/10/24 10:23 Dose: 10 ml Documented By: Admin: 06/09/24 20:18 Dose: 10 ml Documented By: Admin: 06/09/24 08:26 Dose: 10 ml Documented By: Admin: 06/08/24 21:44 Dose: 10 ml Documented By: ASAD Sodium Chloride (Sodium Chloride 0.9% Flush) 10 ml IV PRN PRN PRN Reason: Flush Last Admin: 06/09/24 02:03 Dose: 10 ml Documented By: ASAD Zolpidem Tartrate (Zolpidem 5 Mg Tablet) 5 mg PO BEDTIME [facility] Last Admin: 06/10/24 20:53 Dose: 5 mg Documented By: Admin: 06/09/24 23:53 Dose: 5 mg Documented By: Admin: 06/08/24 21:43 Dose: 5 mg Documented By: Admin: 06/07/24 23:13 Dose: 5 mg Documented By: JEAN Vital Signs Vital signs: Vital Signs - 8 hr 06/07/24 16:09 06/07/24 16:11 06/07/24 16:13 Temperature 98.7 F Pulse Rate 99 H 96 H Respiratory Rate 15 Blood Pressure 205/95 H Pulse Oximetry 96 96 96 Oxygen Delivery Method Room Air 06/07/24 16:13 06/07/24 16:37 06/07/24 16:39 Temperature Pulse Rate 96 H 96 H Respiratory Rate Blood Pressure 139/82 Pulse Oximetry 96 95 Oxygen Delivery Method 06/07/24 16:39 06/07/24 16:58 06/07/24 16:58 Temperature Pulse Rate 96 H Respiratory Rate 26 H Blood Pressure 196/86 H 175/94 H Pulse Oximetry 96 Oxygen Delivery Method 06/07/24 17:00 06/07/24 17:00 06/07/24 17:30 Temperature Pulse Rate 96 H Respiratory Rate 24 Blood Pressure 181/95 H 171/114 H Pulse Oximetry 96 Oxygen Delivery Method 06/07/24 17:30 06/07/24 17:53 06/07/24 17:53 Temperature 99.7 F H Pulse Rate 95 H 94 H Respiratory Rate 24 21 Blood Pressure 102/69 Pulse Oximetry 96 95 Oxygen Delivery Method 06/07/24 18:00 06/07/24 18:00 06/07/24 18:15 Temperature 99.5 F 99.7 F H Pulse Rate 92 H 93 H Respiratory Rate 19 20 Blood Pressure 146/67 H Pulse Oximetry 95 96 Oxygen Delivery Method 06/07/24 18:15 06/07/24 18:30 06/07/24 18:30 Temperature 99.9 F H Pulse Rate 92 H Respiratory Rate 19 Blood Pressure 167/76 H 162/76 H Pulse Oximetry 94 Oxygen Delivery Method Room Air 06/07/24 18:45 06/07/24 18:45 06/07/24 19:00 Temperature 100.0 F H 100.2 F H Pulse Rate 92 H 91 H Respiratory Rate 24 19 Blood Pressure 162/74 H Pulse Oximetry 95 95 Oxygen Delivery Method 06/07/24 19:00 06/07/24 19:30 06/07/24 19:30 Temperature 100.4 F H Pulse Rate 91 H Respiratory Rate 24 Blood Pressure 161/73 H 152/68 H Pulse Oximetry 94 Oxygen Delivery Method 06/07/24 20:00 06/07/24 20:00 06/07/24 20:30 Temperature 100.6 F H 100.8 F H Pulse Rate 94 H 92 H Respiratory Rate 24 21 Blood Pressure 168/74 H Pulse Oximetry 96 95 Oxygen Delivery Method 06/07/24 21:00 06/07/24 21:01 06/07/24 21:01 Temperature 100.9 F H 100.9 F H Pulse Rate 95 H 97 H Respiratory Rate 20 24 Blood Pressure 160/70 H 160/70 H Pulse Oximetry 95 96 Oxygen Delivery Method 06/07/24 21:10 Temperature 101.1 F H Pulse Rate Respiratory Rate Blood Pressure Pulse Oximetry Oxygen Delivery Method MDM - Fall <Cuong Mayes DO - Last Filed: 06/15/24 07:00> Differential Diagnosis Differential diagnosis: Likely other (Intracranial hemorrhage, cervical neck fracture, closed head injury, urinary tract infection) Lab Data 06/10/24 04:16 06/10/24 04:16 Labs: Lab Results 06/07/24 06/07/24 06/07/24 Range/Units 16:45 17:15 20:10 WBC 6.9 (4.5-11.0) X10^3/uL RBC 4.25 (4.0-5.2) X10^6/uL Hgb 13.3 (12.0-16.0) g/dL Hct 39.0 (36-46) % MCV 91.7 (80-100) fL MCH 31.4 (26-34) PG MCHC 34.2 (30-36) % RDW 14.1 (11.6-14.8) % Plt Count 169 (150-400) X10^3/uL Neut % (Auto) 67.0 (50-75) % Lymph % (Auto) 17.9 L (25-40) % Wood % (Auto) 13.9 (3-14) % Eos % (Auto) 0.7 L (2-4) % Baso % (Auto) 0.5 (0-2) % Neut # (Auto) 4600 (1444-1919) /uL Lymph # (Auto) 1200 (7033-9885) /uL Wood # (Auto) 1000 H (0-900) /uL Eos # (Auto) 0 (0-450) /uL Baso # (Auto) 0 (0-100) /uL Sodium 141 142 (137-145) mmol/L Potassium 3.9 3.9 (3.4-5.1) mmol/L Chloride 108 H 109 H (98-107) mmol/L Carbon Dioxide 24 25 (22-32) mmol/L BUN 29 H 26 H (7-17) mg/dL Creatinine 1.14 H 1.05 H (0.52-1.04) mg/dL Estimated GFR 46 L 51 L (>60) mL/min BUN/Creatinine Ratio 25.4 H 24.8 H (6-22) Glucose 95 93 (80-110) mg/dL Calcium 9.4 8.9 (8.4-10.2) mg/dL Total Bilirubin 1.0 (0.2-1.3) mg/dL AST 80 H (14-36) IU/L ALT 48 H (<35) IU/L Alkaline Phosphatase 78 (38-126) U/L Total Creatine Kinase 1087 H 1038 H (30-135) U/L Troponin I 0.018 0.021 (0.01-0.034) ng/mL Total Protein 7.4 (6.3-8.2) g/dL Albumin 4.2 (3.5-5.0) g/dL Globulin 3.2 (1.7-4.1) g/dL Albumin/Globulin Ratio 1.3 (1.0-2.8) Lipase 58 (23-300) U/L Urine Color Yellow Urine Appearance Clear Urine pH 5.5 (4.5-8.0) Ur Specific [place] 1.025 (1.000-1.035) Urine Protein 1+ H (Negative) Urine Glucose (UA) Negative (Negative) g/dL Urine Ketones Trace H (NEGATIVE) Urine Occult Blood 1+ H (Negative) Urine Nitrate Negative (Negative) Urine Bilirubin Negative (NEGATIVE) Urine Urobilinogen 0.2 (0.2) E.U./dL Ur Leukocyte Esterase 1+ H (NEGATIVE) Urine RBC 0-1/hpf (0-5/HPF) Urine WBC 10-30/hpf H (0-5/HPF) Ur Squamous Epith Cells 0-1 /hpf (0-5/HPF) Urine Bacteria Many (>30) H (None) Ur Culture Indicated? Specimen cultured Vol Urine Centrifuged 10ml (spun) Point of Care Testing Glucose POC 95 Imaging Data Chest x-ray: Radiologist's Impression: [place] [address] XRay Report Signed Patient: Sylvia Rincon MR#: [id number] : 1935 Acct:[id number] Age/Sex: 88 / F Date of Service: 06/07/24 Loc: ED Accession Number: [id number] Procedure: XR chest 1V Ordering Provider: Cuong Mayes D.O. PROCEDURE: XR CHEST 1V INDICATIONS: fall TECHNIQUE: One view of the chest was acquired. COMPARISON: None. FINDINGS: Surgical changes and devices: None. Lungs and pleura: Increased pulmonary markings and peribronchial cuffing. Mediastinum: Large hiatal hernia. Cardiomegaly. Bones and chest wall: No suspicious bony lesions. Overlying soft tissues appear unremarkable. IMPRESSION: Moderate pulmonary edema. Large hiatal hernia. CT scan - head: Radiologist's Impression: [place] [address] CT Scan Report Signed Patient: Sylvia Rincon MR#: [id number] : 1935 Acct:[id number] Age/Sex: 88 / F Date of Service: 06/07/24 Loc: ED Accession Number: [id number] Procedure: CT head/brain wo con Ordering Provider: Cuong Mayes D.O. PROCEDURE: CT HEAD/BRAIN WO CON INDICATIONS: fall TECHNIQUE: Noncontrast 4.5 mm thick angled axial sections acquired from the foramen magnum to the vertex, with coronal and sagittal reformats. For radiation dose reduction, the following was used: automated exposure control, adjustment of mA and/or kV according to patient size. COMPARISON: None. FINDINGS: Image quality: Suboptimal due to motion artifact. CSF spaces: Basal cisterns are patent. No extra-axial fluid collections. The ventricles are symmetric in size and shape. Brain: No intracranial bleeds or masses. There is cerebral volume loss for age, with resultant ventricular and sulcal prominence. There are periventricular and deep white matter chronic small vessel ischemic changes. There is intracranial internal carotid artery atherosclerosis. Skull and face: Calvarium and visualized facial bones appear intact, without suspicious lesions. Sinuses: Visualized sinuses and mastoids are clear. IMPRESSION: No acute intracranial pathology. CT - cervical spine: Radiologist's Impression: [place] [id number] CT Scan Report Signed Patient: Sylvia Rincon MR#: [id number] : 1935 Acct:[id number] Age/Sex: 88 / F Date of Service: 06/07/24 Loc: ED Accession Number: [id number] Procedure: CT cervical spine wo con Ordering Provider: Cuong Mayes D.O. PROCEDURE: CT CERVICAL SPINE WO CON INDICATIONS: fall TECHNIQUE: Noncontrast 3 mm thick sections acquired from the skull base to the T4 level. Sagittal and coronal reformats were then constructed. For radiation dose reduction, the following was used: automated exposure control, adjustment of mA and/or kV according to patient size. COMPARISON: None. FINDINGS: Image quality: Suboptimal due to motion artifact. Bones: No fractures or dislocations. Visualized superior ribs are intact. Moderate to severe, multilevel degenerative disc disease and diffuse facet arthrosis. Soft tissues: Prevertebral soft tissues are normal in thickness. No paravertebral hematomas. No apical pneumothoraces. Smooth interstitial thickening of the upper lungs, consistent with moderate pulmonary edema. IMPRESSION: Severely suboptimal evaluation due to motion artifact. No grossly displaced fracture. Extremity x-ray #1: Radiologist's Impression: [address] [address] XRay Report Signed Patient: Sylvia Rincon MR#: [id number] : 1935 Acct:[id number] Age/Sex: 88 / F Date of Service: 06/07/24 Loc: ED Accession Number: [id number] Procedure: XR hip w pel if done LT 2V Ordering Provider: Cuong Mayes D.O. PROCEDURE: XR HIP W PEL IF DONE LT 2V INDICATIONS: pain, s/p fall TECHNIQUE: 2 views of the hip were acquired. COMPARISON: None. FINDINGS: Bones: Suspected impacted fracture of the left femoral neck. Advanced bilateral hip osteoarthritis, with subchondral cystic change and early bony deformity. Soft tissues: No suspicious soft tissue calcifications or masses. IMPRESSION: Suspected impacted fracture of the left femoral neck. ECG Data Interpretation: EKG interpreted ED physician sinus at 96 beats per minute QTC 444, first-degree AV block, nonspecific ST changes normal axis no STEMI MDM Narrative Medical decision making narrative: 88-year-old female with a history of dementia hyperlipidemia A&O x4 at baseline with chronic history of left hip pain comes into the ED from facility via EMS for evaluation of fall. States that over the past hour she has fallen twice. First time was when she was attempting to get out of her chair, was able to stand bear weight ambulate immediately after, she states that the 2nd time was a mechanical trip and fall when she was using her walker. States that she did hit her head but denies LOC not on any blood thinners. Time of evaluation patient does not complaining of any symptoms at this time, stating that she has known history of left hip problems which she is in the process of figuring treatment with her orthopedic surgeon. Patient did have lab work imaging performed here in the emergency department. 1732: Patient not complaining of pain to her left hip after x-rays were performed, analgesics ordered. 1754: Discussed case with Dr. Mg (ortho) states patient to be admitted to hospitalist, states patient can eat given the fact that the earliest he can do surgery is tomorrow evening, we will reach out to hospitalist for admission <Ramon Galeas DO - Last Filed: 06/07/24 22:06> Lab Data Labs: Lab Results 06/07/24 06/07/24 06/07/24 Range/Units 16:45 17:15 20:10 WBC 6.9 (4.5-11.0) X10^3/uL RBC 4.25 (4.0-5.2) X10^6/uL Hgb 13.3 (12.0-16.0) g/dL Hct 39.0 (36-46) % MCV 91.7 (80-100) fL MCH 31.4 (26-34) PG MCHC 34.2 (30-36) % RDW 14.1 (11.6-14.8) % Plt Count 169 (150-400) X10^3/uL Neut % (Auto) 67.0 (50-75) % Lymph % (Auto) 17.9 L (25-40) % [place] % (Auto) 13.9 (3-14) % Eos % (Auto) 0.7 L (2-4) % Baso % (Auto) 0.5 (0-2) % Neut # (Auto) 4600 (9211-9845) /uL Lymph # (Auto) 1200 (1975-4698) /uL [place] # (Auto) 1000 H (0-900) /uL Eos # (Auto) 0 (0-450) /uL Baso # (Auto) 0 (0-100) /uL Sodium 141 142 (137-145) mmol/L Potassium 3.9 3.9 (3.4-5.1) mmol/L Chloride 108 H 109 H (98-107) mmol/L Carbon Dioxide 24 25 (22-32) mmol/L BUN 29 H 26 H (7-17) mg/dL Creatinine 1.14 H 1.05 H (0.52-1.04) mg/dL Estimated GFR 46 L 51 L (>60) mL/min BUN/Creatinine Ratio 25.4 H 24.8 H (6-22) Glucose 95 93 (80-110) mg/dL Calcium 9.4 8.9 (8.4-10.2) mg/dL Total Bilirubin 1.0 (0.2-1.3) mg/dL AST 80 H (14-36) IU/L ALT 48 H (<35) IU/L Alkaline Phosphatase 78 (38-126) U/L Total Creatine Kinase 1087 H 1038 H (30-135) U/L Troponin I 0.018 0.021 (0.01-0.034) ng/mL Total Protein 7.4 (6.3-8.2) g/dL Albumin 4.2 (3.5-5.0) g/dL Globulin 3.2 (1.7-4.1) g/dL Albumin/Globulin Ratio 1.3 (1.0-2.8) Lipase 58 (23-300) U/L Urine Color Yellow Urine Appearance Clear Urine pH 5.5 (4.5-8.0) Ur Specific [place] 1.025 (1.000-1.035) Urine Protein 1+ H (Negative) Urine Glucose (UA) Negative (Negative) g/dL Urine Ketones Trace H (NEGATIVE) Urine Occult Blood 1+ H (Negative) Urine Nitrate Negative (Negative) Urine Bilirubin Negative (NEGATIVE) Urine Urobilinogen 0.2 (0.2) E.U./dL Ur Leukocyte Esterase 1+ H (NEGATIVE) Urine RBC 0-1/hpf (0-5/HPF) Urine WBC 10-30/hpf H (0-5/HPF) Ur Squamous Epith Cells 0-1 /hpf (0-5/HPF) Urine Bacteria Many (>30) H (None) Ur Culture Indicated? Specimen cultured Vol Urine Centrifuged 10ml (spun) Point of Care Testing Glucose POC 95 MDM Narrative Medical decision making narrative: 88-year-old female with a history of dementia hyperlipidemia A&O x4 at baseline with chronic history of left hip pain comes into the ED from facility via EMS for evaluation of fall. States that over the past hour she has fallen twice. First time was when she was attempting to get out of her chair, was able to stand bear weight ambulate immediately after, she states that the 2nd time was a mechanical trip and fall when she was using her walker. States that she did hit her head but denies LOC not on any blood thinners. Time of evaluation patient does not complaining of any symptoms at this time, stating that she has known history of left hip problems which she is in the process of figuring treatment with her orthopedic surgeon. Patient did have lab work imaging performed here in the emergency department. 1732: Patient not complaining of pain to her left hip after x-rays were performed, analgesics ordered. 1754: Discussed case with Dr. Mg (ortho) states patient to be admitted to hospitalist, states patient can eat given the fact that the earliest he can do surgery is tomorrow evening, we will reach out to hospitalist for admission Dr galeas: Received turned over. Review patient's history and physical exam. Orthopedics has already been consulted. I discussed the case with Dr. Mcdermott hospitalist on-call who will admit for further evaluation and treatment. Patient's urinalysis also concerning for UTI. She was given antibiotics. Blood cultures were ordered. Discharge Plan Departure Patient Disposition: Admitted As Inpatient Clinical Impression: Fracture of femoral neck, left, Closed head injury, Ground-level fall, Acute UTI Admit Date/Time: 06/07/24 21:24 Admit Provider: Magnus Mcdermott
--- NOTE | 2024-06-07 16:15 | DI.RAD.S_ITS ---
PROCEDURE: XR CHEST 1V INDICATIONS: fall TECHNIQUE: One view of the chest was acquired. COMPARISON: None. FINDINGS: Surgical changes and devices: None. Lungs and pleura: Increased pulmonary markings and peribronchial cuffing. Mediastinum: Large hiatal hernia. Cardiomegaly. Bones and chest wall: No suspicious bony lesions. Overlying soft tissues appear unremarkable. IMPRESSION: Moderate pulmonary edema. Large hiatal hernia. Dictated by: Tae Zaragoza M.D. on 06/07/2024 at 16:50 Approved by: Tae Zaragoza M.D. on 06/07/2024 at 16:50
--- NOTE | 2024-06-07 16:15 | DI.RAD.S_ITS ---
PROCEDURE: XR HIP W PEL IF DONE LT 2V INDICATIONS: pain, s/p fall TECHNIQUE: 2 views of the hip were acquired. COMPARISON: None. FINDINGS: Bones: Suspected impacted fracture of the left femoral neck. Advanced bilateral hip osteoarthritis, with subchondral cystic change and early bony deformity. Soft tissues: No suspicious soft tissue calcifications or masses. IMPRESSION: Suspected impacted fracture of the left femoral neck. Dictated by: Tae Zaragoza M.D. on 06/07/2024 at 16:49 Approved by: Tae Zaragoza M.D. on 06/07/2024 at 16:49
--- NOTE | 2024-06-07 16:15 | DI.CT.S_ITS ---
PROCEDURE: CT HEAD/BRAIN WO CON INDICATIONS: fall TECHNIQUE: Noncontrast 4.5 mm thick angled axial sections acquired from the foramen magnum to the vertex, with coronal and sagittal reformats. For radiation dose reduction, the following was used: automated exposure control, adjustment of mA and/or kV according to patient size. COMPARISON: None. FINDINGS: Image quality: Suboptimal due to motion artifact. CSF spaces: Basal cisterns are patent. No extra-axial fluid collections. The ventricles are symmetric in size and shape. Brain: No intracranial bleeds or masses. There is cerebral volume loss for age, with resultant ventricular and sulcal prominence. There are periventricular and deep white matter chronic small vessel ischemic changes. There is intracranial internal carotid artery atherosclerosis. Skull and face: Calvarium and visualized facial bones appear intact, without suspicious lesions. Sinuses: Visualized sinuses and mastoids are clear. IMPRESSION: No acute intracranial pathology. Dictated by: Tae Zaragoza M.D. on 06/07/2024 at 16:51 Approved by: Tae Zaragoza M.D. on 06/07/2024 at 16:51
--- NOTE | 2024-06-07 16:15 | DI.CT.S_ITS ---
PROCEDURE: CT CERVICAL SPINE WO CON INDICATIONS: fall TECHNIQUE: Noncontrast 3 mm thick sections acquired from the skull base to the T4 level. Sagittal and coronal reformats were then constructed. For radiation dose reduction, the following was used: automated exposure control, adjustment of mA and/or kV according to patient size. COMPARISON: None. FINDINGS: Image quality: Suboptimal due to motion artifact. Bones: No fractures or dislocations. Visualized superior ribs are intact. Moderate to severe, multilevel degenerative disc disease and diffuse facet arthrosis. Soft tissues: Prevertebral soft tissues are normal in thickness. No paravertebral hematomas. No apical pneumothoraces. Smooth interstitial thickening of the upper lungs, consistent with moderate pulmonary edema. IMPRESSION: Severely suboptimal evaluation due to motion artifact. No grossly displaced fracture. Dictated by: Tae Zaragoza M.D. on 06/07/2024 at 16:53 Approved by: Tae Zaragoza M.D. on 06/07/2024 at 16:54
--- NOTE | 2024-06-07 16:52 | EKG_ITS ---
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
[2024-06-07 17:09] LABS: Add Manual Diff / Slide Review NO; Basophils Absolute Auto 0 /uL (0-100); Basophils Percent Auto 0.5 % (0-2); Eosinophils Absolute Auto 0 /uL (0-450); Eosinophils Percent Auto 0.7 % (2-4); Hemoglobin 13.3 g/dL (12.0-16.0); Lymphocytes Absolute Auto 1200 /uL (1100-4500); Lymphocytes Percent Auto 17.9 % (25-40); Mean Corpuscular HGB Conc 34.2 % (30-36); Mean Corpuscular Hemoglobin 31.4 PG (26-34); Mean Corpuscular Volume 91.7 fL (80-100); Monocytes Absolute Auto 1000 /uL (0-900); Monocytes Percent Auto 13.9 % (3-14); Neutrophils Absolute Auto 4600 /uL (1500-7000); Platelet Count 169 X10^3/uL (150-400); Red Blood Cell Count 4.25 X10^6/uL (4.0-5.2); Red Cell Distribution Width 14.1 % (11.6-14.8); White Blood Cell Count 6.9 X10^3/uL (4.5-11.0)
[2024-06-07] MEDS: MORPHINE 2 MG/ML INJ IV ×2 (17:10→17:35)
[2024-06-07] MEDS: LIDOCAINE 2% (GLYDO) 6 ML GEL TOP (17:15)
[2024-06-07 17:19] LABS: Alanine Aminotransferase 48 IU/L (<35); Albumin 4.2 g/dL (3.5-5.0); Albumin Globulin Ratio 1.3 (1.0-2.8); Alkaline Phosphatase 78 U/L (38-126); Aspartate Aminotransferase 80 IU/L (14-36); BUN Creatinine Ratio 25.4 (6-22); Blood Urea Nitrogen 29 mg/dL (7-17); Calcium 9.4 mg/dL (8.4-10.2); Carbon Dioxide 24 mmol/L (22-32); Chloride 108 mmol/L (98-107); Creatine Kinase 1087 U/L (30-135); Estimated Glomerular Filt Rate 46 mL/min (>60); Globulin 3.2 g/dL (1.7-4.1); Glucose 95 mg/dL (80-110); HEMOLYSIS 29 (0-50); Lipase 58 U/L (23-300); Potassium 3.9 mmol/L (3.4-5.1); Sodium 141 mmol/L (137-145); Total Protein 7.4 g/dL (6.3-8.2)
[2024-06-07 17:31] LABS: Troponin I 0.018 ng/mL (0.01-0.034)
[2024-06-07 18:19] LABS: Appearance Urine UA CLEAR; Bilirubin Urine UA NEGATIVE (NEGATIVE); Color Urine UA YELLOW; Glucose Urine UA NEGATIVE (Negative); Ketones Urine UA TRACE (NEGATIVE); Leukocyte Esterase Urine UA 1+ (NEGATIVE); Nitrite Urine UA NEGATIVE (Negative); Occult Blood Urine UA 1+ (Negative); Protein Urine UA 1+ (Negative); Specific Gravity Urine UA 1.025 (1.000-1.035); Urobilinogen Urine UA 0.2 E.U./dL (0.2)
[2024-06-07 18:22] LABS: pH Urine UA 5.5 (4.5-8.0)
[2024-06-07 18:27] LABS: Bacteria Urine Many (>30); Culture Indicated Urine Specimen Cultured; RBC Urine 0-1/HPF (0-5/HPF); Squamous Epithelial Cell Urine 0-1 /HPF (0-5/HPF); Urine Volume 10mL (spun); WBC Urine 10-30/HPF (0-5/HPF)
--- NOTE | 2024-06-07 19:18 | EKG_ITS ---
[facility] [address] [place] [address] Test Date: 2024-06-07 Pat Name: Sylvia Rincon Department: [facility] Room: Gender: Female Public Information Officer: ELSY FERREIRA : 1935 Requested By: Order Number: [id number] Reading MD: Dickson Anderson Measurements Intervals [place] Rate: 93 P: [place]: QRS: 54 QRSD: 72 T: -80 QT: 358 QTc: 445 Interpretive Statements Accelerated Junctional rhythm with premature ventricular complexes or fusion complexes Low voltage QRS Septal infarct , age undetermined trac Electronically Signed On 06-08-2024 12:52:26 PST by Dickson Anderson
[2024-06-07] MEDS: cefTRIAXone 1,000 MG in SODIUM CHLORIDE 0.9% 100 ML 200 MG IV (19:46)
[2024-06-07] MEDS: SODIUM CHLORIDE 0.9% 1,000 ML 75 ML IV (20:22)
[2024-06-07 20:36] LABS: Creatine Kinase 1038 U/L (30-135)
[2024-06-07 20:37] LABS: BUN Creatinine Ratio 24.8 (6-22); Blood Urea Nitrogen 26 mg/dL (7-17); Calcium 8.9 mg/dL (8.4-10.2); Carbon Dioxide 25 mmol/L (22-32); Chloride 109 mmol/L (98-107); Estimated Glomerular Filt Rate 51 mL/min (>60); Glucose 93 mg/dL (80-110); HEMOLYSIS 28 (0-50); Potassium 3.9 mmol/L (3.4-5.1); Sodium 142 mmol/L (137-145)
[2024-06-07 20:49] LABS: Troponin I 0.021 ng/mL (0.01-0.034)
[2024-06-07] MEDS: ACETAMINOPHEN 325 MG TABLET 650 MG PO (21:10)
--- NOTE | 2024-06-07 21:23 | PC.NURSE ---
[id number]: # [phone] called to provide update to daughter - Vic Melo, reached voicemail, left message to call us back at our ER phone number
--- NOTE | 2024-06-07 21:39 | DI.CT.S_ITS ---
PROCEDURE: CT HIP LEFT WITHOUT CON INDICATIONS: suspected left femoral neck fracture, surgical planning veri TECHNIQUE: Noncontrast 3 mm axial sections acquired through the bony pelvis, with coronal and sagittal reformatting. COMPARISON: [facility], CR, XR HIP W PEL IF DONE LT 2V, 06/07/2024, 16:25. FINDINGS: Image quality: Excellent. Bones: No left femur or hemipelvis fracture identified. Severe degenerative changes of the left hip, with bulky osteophytes, subchondral cystic change . Soft tissues: No hematoma. Colonic diverticulosis without evidence of diverticulitis. Sorensen catheter within the urinary bladder. IMPRESSION: No left hip fracture. Extensive degenerative changes of the left hip account for the appearance on x-ray. Dictated by: Tae Zaragoza M.D. on 06/08/2024 at 9:06 Approved by: Tae Zaragoza M.D. on 06/08/2024 at 9:09
[2024-06-07] MEDS: ZOLPIDEM 5 MG TABLET PO (23:13)
[2024-06-07] MEDS: HYDROMORPHONE 0.5 MG INJ IV (23:13)
[2024-06-08] MEDS: HYDROMORPHONE 0.5 MG INJ IV (02:05)
[2024-06-08 03:00] VITALS: BP 110/58; PULSE 91; RESP 16; TEMP 36.2; O2SAT 93
--- NOTE | 2024-06-08 06:05 | P.HP_ITS ---
History of Present Illness History of Present Illness Chief complaint: Fall-Hip Pain Narrative: 88 year old female with past medical history of dementia, HLD and insomnia presents with a ground level fall and left hip pain. Per report, the patient had two falls earlier today. The patient was trying to get out of her chair when she fell the first time but when she was ambulating with her walker she fell again and landed on her left side. The patient did hit her left hip and head but denies any LOC. Also it was noted that the patient was not on any blood thinners. The otherwise denies any chest pain, shortness of breath, fever, chills, nausea, vomiting or diarrhea. In our ER, the patient was hemodynamicaly stable. Labs shows UA that is positive but no sign of sepsis. Xray shows left hip fracutre. EKG shows possible anterolateral ischemia in V3-V4 but repeat EKG did not show any sign of ischemia. CXR was clear. Trops were negative x 2. Patient was given IV Ceftriaxone. Blood cultures drawn. Pain medications given. Orthopedic surgeon consulted and plan for OR later tomorrow. [facility] Medical History (Updated 06/07/24 @ 18:49 by Ramon Galeas DO) Dementia Social History household members: family Smoking Status: Former smoker second hand exposure: No alcohol intake: current substance use type: does not use Meds Home Medications and Allergies Home Medications Medication Instructions Recorded Confirmed Type zolpidem 5 mg tablet 5 mg PO BEDTIME #30 tabs 04/09/24 06/07/24 Rx Allergies Allergy/AdvReac Type Severity Reaction Status Date / Time No Known Drug Allergies Allergy Verified 06/07/24 16:11 Review of Systems Review of Systems ROS: Yes All systems reviewed with the patient and are negative except as otherwise documented Exam Vital Signs (past 8 hours): - 06/07/24 23:52 06/08/24 03:00 Temperature 98.7 F 97.1 F L Pulse Rate 95 H 91 H Respiratory Rate 20 16 Blood Pressure 126/76 110/58 L Pulse Oximetry 94 93 Oxygen Flow Rate 0 Oxygen Delivery Method Room Air Oxygen Flow Rate 0 Narrative Exam Narrative: Physical Exam: GENERAL: The patient is not in any acute distressed. Awake and alert. HEENT: Nonicteric sclerae, PERRLA, EOMI. Oropharynx clear. Moist mucous membranes. Conjunctivae appear well perfused. HEART: Regular rate and rhythm without murmurs. No lower extremities edema. LUNGS: Clear to auscultation bilaterally. No wheezing, crackles or rhonchi ABDOMEN: Soft, positive bowel sounds, nontender. SKIN: No rash, no excessive bruising, petechiae, or purpura. NEUROLOGIC: Limited movement in left LEs due to left hip pain otherwise AxO x 3. Cranial nerves II-XII intact without motor/sensory deficit. Objective Labs 06/07/24 16:45 06/07/24 20:10 Labs: Laboratory Results - last 24 hr 06/07/24 06/07/24 06/07/24 16:45 17:15 20:10 WBC 6.9 RBC 4.25 Hgb 13.3 Hct 39.0 MCV 91.7 MCH 31.4 MCHC 34.2 RDW 14.1 Plt Count 169 Neut % (Auto) 67.0 Lymph % (Auto) 17.9 L [place] % (Auto) 13.9 Eos % (Auto) 0.7 L Baso % (Auto) 0.5 Neut # (Auto) 4600 Lymph # (Auto) 1200 [place] # (Auto) 1000 H Eos # (Auto) 0 Baso # (Auto) 0 Sodium 141 142 Potassium 3.9 3.9 Chloride 108 H 109 H Carbon Dioxide 24 25 BUN 29 H 26 H Creatinine 1.14 H 1.05 H Estimated GFR 46 L 51 L BUN/Creatinine Ratio 25.4 H 24.8 H Glucose 95 93 Calcium 9.4 8.9 Total Bilirubin 1.0 AST 80 H ALT 48 H Alkaline Phosphatase 78 Total Creatine Kinase 1087 H 1038 H Troponin I 0.018 0.021 Total Protein 7.4 Albumin 4.2 Globulin 3.2 Albumin/Globulin Ratio 1.3 Lipase 58 Urine Color Yellow Urine Appearance Clear Urine pH 5.5 Ur Specific [place] 1.025 Urine Protein 1+ H Urine Glucose (UA) Negative Urine Ketones Trace H Urine Occult Blood 1+ H Urine Nitrate Negative Urine Bilirubin Negative Urine Urobilinogen 0.2 Ur Leukocyte Esterase 1+ H Urine RBC 0-1/hpf Urine WBC 10-30/hpf H Ur Squamous Epith Cells 0-1 /hpf Urine Bacteria Many (>30) H Ur Culture Indicated? Specimen cultured Vol Urine Centrifuged 10ml (spun) Assessment & Plan Assessment & Plan narrative: Ground level fall with left hip fracture. Admit the patient to medical telemetry. Note patient is medically stable and clear for sugery. NPO after midnight. IVF. Pain control. Appreciates orthopedic surgery input and management. UTI. IVF and IV Ceftriaxone. Patient not septic at this time. Insomnia. Resume home ambien. Dehydration. IVF. DVT PPx SCDs for now in anticpation for OR. Code status Full code Disposition rehab in 1-2 days Time-Based Coding :: [TOTAL MINUTES] spent with patient and on the chart (including review of chart, obtaining history, exam, reviewing outside data, placing orders, documenting exam and treatment plan, and counseling patient) on [DATE].
[2024-06-08 08:00] VITALS: BP 123/63; PULSE 79; RESP 18; TEMP 36.3; O2SAT 95
--- NOTE | 2024-06-08 08:09 | P.CONS_ITS ---
History of Present Illness Consult details Date Patient Seen: 06/08/24 Time Patient Seen: 08:09 Chief complaint: Fall-Hip Pain Narrative: 88-year-old female complaining of left hip pain. Status post a fall. Patient is not the best historian. Unable to determine how much issue she was having with the hip before the fall. Meds Home Medications and Allergies Home Medications Medication Instructions Recorded Confirmed Type zolpidem 5 mg tablet 5 mg PO BEDTIME #30 tabs 04/09/24 06/07/24 Rx Allergies Allergy/AdvReac Type Severity Reaction Status Date / Time No Known Drug Allergies Allergy Verified 06/07/24 16:11 Exam Vital Signs (past 8 hours): - 06/08/24 03:00 Temperature 97.1 F L Pulse Rate 91 H Respiratory Rate 16 Blood Pressure 110/58 L Pulse Oximetry 93 Oxygen Delivery Method Room Air Oxygen Flow Rate 0 Narrative Exam Narrative: No sign of any shortening or rotation of either extremity. Pain with internal and external rotation of both hips. One side is not any more significant than the other. Compartments are soft. She is neurovascularly intact. No sign of any knee or ankle swelling or instability. Palpable pedal pulses. Objective Labs 06/07/24 16:45 06/07/24 20:10 Labs: Laboratory Results - last 24 hr 06/07/24 06/07/24 06/07/24 16:45 17:15 20:10 WBC 6.9 RBC 4.25 Hgb 13.3 Hct 39.0 MCV 91.7 MCH 31.4 MCHC 34.2 RDW 14.1 Plt Count 169 Neut % (Auto) 67.0 Lymph % (Auto) 17.9 L [place] % (Auto) 13.9 Eos % (Auto) 0.7 L Baso % (Auto) 0.5 Neut # (Auto) 4600 Lymph # (Auto) 1200 [place] # (Auto) 1000 H Eos # (Auto) 0 Baso # (Auto) 0 Sodium 141 142 Potassium 3.9 3.9 Chloride 108 H 109 H Carbon Dioxide 24 25 BUN 29 H 26 H Creatinine 1.14 H 1.05 H Estimated GFR 46 L 51 L BUN/Creatinine Ratio 25.4 H 24.8 H Glucose 95 93 Calcium 9.4 8.9 Total Bilirubin 1.0 AST 80 H ALT 48 H Alkaline Phosphatase 78 Total Creatine Kinase 1087 H 1038 H Troponin I 0.018 0.021 Total Protein 7.4 Albumin 4.2 Globulin 3.2 Albumin/Globulin Ratio 1.3 Lipase 58 Urine Color Yellow Urine Appearance Clear Urine pH 5.5 Ur Specific [place] 1.025 Urine Protein 1+ H Urine Glucose (UA) Negative Urine Ketones Trace H Urine Occult Blood 1+ H Urine Nitrate Negative Urine Bilirubin Negative Urine Urobilinogen 0.2 Ur Leukocyte Esterase 1+ H Urine RBC 0-1/hpf Urine WBC 10-30/hpf H Ur Squamous Epith Cells 0-1 /hpf Urine Bacteria Many (>30) H Ur Culture Indicated? Specimen cultured Vol Urine Centrifuged 10ml (spun) [facility] Medical History (Updated 06/07/24 @ 18:49 by Ramon Galeas DO) Dementia Social History household members: family Tobacco & Substance Use Smoking Status: Former smoker second hand exposure: No alcohol intake: current substance use type: does not use Assessment & Plan Assessment & Plan narrative: Patient is status post fall complaining of left hip pain. X-rays show significant arthritic changes to bilateral hips. Patient also had a CT scan we are awaiting final radiologist read on the CT scan but based on my interpretation as well as Dr. Mahajan, not seen any obvious sign of a fracture. But definitely seeing signs of significant arthritic changes to the left hip. If the CT scan is truly free of any sign of any fracture then obviously no surgical intervention is needed at this time. If the CT scan shows signs of a nondisplaced impacted fracture then this can sometimes be treated non operatively with nonweightbearing for 6 weeks. We will await final radiologist read and then proceed accordingly. Time-Based Coding :: [TOTAL MINUTES] spent with patient and on the chart (including review of chart, obtaining history, exam, reviewing outside data, placing orders, documenting exam and treatment plan, and counseling patient) on [DATE].
--- NOTE | 2024-06-08 08:20 | PM.PN.1 ---
Subjective Subjective Interval history: From night doctor: 88 year old female with past medical history of dementia, HLD and insomnia presents with a ground level fall and left hip pain. Per report, the patient had two falls earlier today. The patient was trying to get out of her chair when she fell the first time but when she was ambulating with her walker she fell again and landed on her left side. The patient did hit her left hip and head but denies any LOC. Also it was noted that the patient was not on any blood thinners. The otherwise denies any chest pain, shortness of breath, fever, chills, nausea, vomiting or diarrhea. In our ER, the patient was hemodynamicaly stable. Labs shows UA that is positive but no sign of sepsis. Xray shows left hip fracutre. EKG shows possible anterolateral ischemia in V3-V4 but repeat EKG did not show any sign of ischemia. CXR was clear. Trops were negative x 2. Patient was given IV Ceftriaxone. Blood cultures drawn. Pain medications given. Orthopedic surgeon consulted and plan for OR later tomorrow. S: She was denied much in terms of hip pain at this time. She also denies any dyspnea. CT of the left hip was negative for fracture. Exam Vital Signs (past 8 hours): - 06/08/24 03:00 Temperature 97.1 F L Pulse Rate 91 H Respiratory Rate 16 Blood Pressure 110/58 L Pulse Oximetry 93 Oxygen Delivery Method Room Air Oxygen Flow Rate 0 Narrative Exam Narrative: NAD, alert and oriented. Fluent speech. Lungs are clear, normal rate and effort. Heart is regular, no murmur gallop or rub. Abdomen is soft, non distended. Extremities are free of edema. She was relatively good ability to actively flex and extend her legs at the hips bilaterally. Objective Imaging Multiple studies:: Radiologist's impression: Hip x-ray: Suspected impacted fracture of the left femoral neck. Hip CT: IMPRESSION: No left hip fracture. Extensive degenerative changes of the left hip account for the appearance on x-ray. Labs 06/07/24 16:45 06/07/24 20:10 Labs: Laboratory Results - last 24 hr 06/07/24 06/07/24 06/07/24 16:45 17:15 20:10 WBC 6.9 RBC 4.25 Hgb 13.3 Hct 39.0 MCV 91.7 MCH 31.4 MCHC 34.2 RDW 14.1 Plt Count 169 Neut % (Auto) 67.0 Lymph % (Auto) 17.9 L [place] % (Auto) 13.9 Eos % (Auto) 0.7 L Baso % (Auto) 0.5 Neut # (Auto) 4600 Lymph # (Auto) 1200 [place] # (Auto) 1000 H Eos # (Auto) 0 Baso # (Auto) 0 Sodium 141 142 Potassium 3.9 3.9 Chloride 108 H 109 H Carbon Dioxide 24 25 BUN 29 H 26 H Creatinine 1.14 H 1.05 H Estimated GFR 46 L 51 L BUN/Creatinine Ratio 25.4 H 24.8 H Glucose 95 93 Calcium 9.4 8.9 Total Bilirubin 1.0 AST 80 H ALT 48 H Alkaline Phosphatase 78 Total Creatine Kinase 1087 H 1038 H Troponin I 0.018 0.021 Total Protein 7.4 Albumin 4.2 Globulin 3.2 Albumin/Globulin Ratio 1.3 Lipase 58 Urine Color Yellow Urine Appearance Clear Urine pH 5.5 Ur Specific [place] 1.025 Urine Protein 1+ H Urine Glucose (UA) Negative Urine Ketones Trace H Urine Occult Blood 1+ H Urine Nitrate Negative Urine Bilirubin Negative Urine Urobilinogen 0.2 Ur Leukocyte Esterase 1+ H Urine RBC 0-1/hpf Urine WBC 10-30/hpf H Ur Squamous Epith Cells 0-1 /hpf Urine Bacteria Many (>30) H Ur Culture Indicated? Specimen cultured Vol Urine Centrifuged 10ml (spun) [facility] Medical History Dementia Social History household members: family Smoking Status: Former smoker second hand exposure: No alcohol intake: current substance use type: does not use Assessment & Plan Assessment & Plan narrative: 1. Ground level fall with left hip CONTUSION. 2. UTI. IVF and IV Ceftriaxone. 3. Insomnia. Resume home ambien. 4. Dehydration. IVF. PLAN: -continue IV fluids and antibiotics. -PT and OT evaluations to check for safety of ambulation. -Social work evaluation to assess for discharge plan. LIDYA: 06/09. Destination to be determined. Time-Based Coding :: [TOTAL MINUTES] spent with patient and on the chart (including review of chart, obtaining history, exam, reviewing outside data, placing orders, documenting exam and treatment plan, and counseling patient) on [DATE].
[2024-06-08] MEDS: SODIUM CHLORIDE 0.9% 1,000 ML 75 ML IV ×2 (10:06→23:27)
--- NOTE | 2024-06-08 11:50 | PT.IIE ---
Surgery Performed Operation Date: 06/08/24 17:30 <No data on this case meets the specified criteria> Medical History (Last Reviewed 06/08/24 @ 09:32 by Dickson Anderson MD) Dementia Physical Therapy Inpatient Evaluation/Re-Eval M1 PT/OT-IP Prior Functional Status Start: 06/08/24 13:26 Freq: NEEDED Status: Active Protocol: Document 06/08/24 11:50 AB (Rec: 06/08/24 13:39 AB [id number]) Medical Review Prior Functional Status Medical History Reviewed Yes Communication able to make needs known Mobility and Gait Pt was MOD IND with use of a 4WW for mobility around her apartment. She was able to ambulate to the dining room at [facility] and daughter states that she could walk from the car to doctors appoinments but is otherwise fairly sedentairy. Activities of Daily Living and IADL's Pt was IND or MOD I for all ADLs. Pt was able to bathe and dress independently. Daughter manages finances. Social History Household Members none Living Arrangements Apartment/Condo Number of Floors (Floors) One Floor Number of Stairs To Enter/Railing? No steps to apt at [facility] Home Environment Standard Height Toilet,Walk in Shower,Built-In Shower Seat Home Equipment Four Wheel Walker,Hand Held Shower,Grab Bars In Shower Employment Status Retired Additional Social History Comment Pt sleeps in a flat arroyo size bed without rails. M2 PT-IP Current Condition Start: 06/08/24 13:26 Freq: NEEDED Status: Active Protocol: Document 06/08/24 11:50 AB (Rec: 06/08/24 13:39 AB [id number]) Physical Therapy Current Condition Current Condition Evaluation Date 06/08/24 Treatment Diagnosis GLF; difficulty in walking Onset Date 06/07/24 M3 PT-IP Subjective Start: 06/08/24 13:26 Freq: NEEDED Status: Active Protocol: Document 06/08/24 11:50 AB (Rec: 06/08/24 13:39 AB [id number]) Subjective Physical Therapy Visit Type Type Initial Evaluation Visit Start Time 11:50 Visit Stop Time 12:30 Number of APPLICATION INFRASTRUCTURE ENGINEER Visits 0 Physical Therapy Visit Comments Patient Comments agreeable to do PT M4 PT-IP Mobility and Gait Start: 06/08/24 13:26 Freq: NEEDED Status: Active Protocol: Document 06/08/24 11:50 AB (Rec: 06/08/24 13:39 AB [id number]) PT-Bed Mobility Assessment Supine to Sit Supine to Sit Maximum Assistance,2 Person Assistance,Head of Bed Elevated,Bedrails Sit to Supine Sit to Supine Total Assistance,2 Person Assistance PT-Transfer Assessment Sit to and From Stand Sit to and from Stand Maximum Assistance,2 Person Assistance,Use of Upper Extremities Equipment Transfer Assistive Device Gait Belt,Front Wheeled Walker Orthotic/Prosthetic Devices or Brace: No Comments Mobility Comments pt supine in bed and agreed to do PT. obtained PLOF and home set up but pt with decrease memory and stated to ask her daughters for more info. BP: 113/68. completed supine to sit max A x 2 and max cues with HOB elevated and pt used bed rail. pt with increase fear of falling and tends to stiffen up during mobility. max A for sitting on EOB. sit to stand from EOB max A x 2 and max cues. pt completed x 2 but unable to stand upright despite max A x 2 provided using FWW and unable to transfer to chair. assisted pt back to bed as requested requiring total A x 2 and max cues. positioned pt in bed. call light and table placed within reach. Gait Assessment Comments Gait Comments unable at this time PT-Balance Assessment Sitting Balance and Reactions Static Sitting Balance Ability Fair Dynamic Sitting Balance Ability Poor Standing Balance and Reactions Static Standing Balance Ability Poor Dynamic Standing Balance Ability Poor Device Used FWW M5 PT-IP Objective Assessments Start: 06/08/24 13:26 Freq: NEEDED Status: Active Protocol: Document 06/08/24 11:50 AB (Rec: 06/08/24 13:39 AB [id number]) Orientation Orientation/Cognition Level of Alertness Confusional State Orientation Name Language Function Ability Hard of Hearing Safety Awareness Decreased Safety Awareness Memory Description Short Term Impaired,Snf Impaired Gross Range of Motion Lower Extremity ROM Assessment Within Functional Limits Strength Lower Extremity Strength Hip 3+/5 Knee 3+/5 Muscle Tone Muscle Tone WNL Yes M6 PT-IP Treatment Start: 06/08/24 13:26 Freq: NEEDED Status: Active Protocol: Document 06/08/24 11:50 AB (Rec: 06/08/24 13:39 AB [id number]) Physical Therapy Treatment Education Education Provided Safety M7 PT-IP Assessment and Plan Start: 06/08/24 13:26 Freq: NEEDED Status: Active Protocol: Document 06/08/24 11:50 AB (Rec: 06/08/24 13:39 AB [id number]) PT Summary Assessment and Plan Potential Rehabilitation Potential Fair Status of Condition at Evaluation Evolving Summary Impairments Pain,ROM,Strength,Balance, Coordination,Sensation,Tone, Cognition,Bed Mobility, Transfers,Gait,Activity Tolerance Assessment Summary pt is an 88 y/o F s/p fall. per EMR: x-ray shows L hip fx but CT imaging was negative. per hospitalist LLE WBAT during rounds meeting. pt requiring max Ax 2 to total A x 2 with mobility and unable to ambulate at this time. pt with increase fear of falling affecting level of assistance needed. pt will require SNF rehab to improve strength and mobility. Goals Bed Mobility Goal Minimal Assistance Transfer Goal Minimal Assistance,Front Wheeled Walker Gait Goal Minimal Assistance,Front Wheel Walker Gait Distance 50 Other Goals improve bed mobility, transfers, ambulation using FWW ~ 150 ft SBA Days to Meet Goals 10 Frequency of Treatment Frequency Of Treatment Once a Day Treatment Plan Physical Therapy Treatment Plan Bed Mobility Training,Transfer Training,Gait Training, Therapeutic Exercise,Balance Retraining,Discharge Planning, Hot or Cold Pack,Neuromuscular Re-ed,Coordination Retraining ,Manual Therapy Precautions Other Precautions falls Recommendations To Nursing Amount of Assist Needed Mechanical Lift Discharge Recommendations PT Discharge Recommendations SNF Rehab Transportation Needs at Discharge Wheelchair/Cabulance,Stretcher /Ambulance
[2024-06-08 12:00] VITALS: BP 113/65; PULSE 94; RESP 18; TEMP 36.7; O2SAT 91
[2024-06-08 12:09] LABS: Adenovirus Not Detected (Not Detect); B. parapertussis Not Detected (Not Detecte); Bordetella pertussis Not Detected (Not Detect); Chlamydophila pneumoniae Not Detected (Not Detect); Coronavirus 229E Not Detected (Not Detect); Coronavirus HKU1 Not Detected (Not Detect); Coronavirus NL 63 Not Detected (Not Detect); Coronavirus OC43 Not Detected (Not Detect); Human Metapneumovirus Not Detected (Not Detect); Human Rhinovirus/Enterovirus Not Detected (Not Detect); Influenza A H1-2009 Detected (Not Detect); Influenza B Not Detected (Not Detect); Mycoplasma pneumoniae Not Detected (Not Detect); Parainfluenza Virus 1 Not Detected (Not Detect); Parainfluenza Virus 2 Not Detected (Not Detect); Parainfluenza Virus 3 Not Detected (Not Detect); Parainfluenza Virus 4 Not Detected (Not Detect); Respiratory Syncytial Virus Not Detected (Not Detect); SARS- CoV-2 Not Detected (Not Detecte)
--- NOTE | 2024-06-08 12:27 | OT.IP.EVAL ---
Surgery Performed Operation Date: 06/08/24 17:30 <No data on this case meets the specified criteria> Past Medical History (Last Reviewed 06/08/24 @ 09:32 by Dickson Anderson MD) Dementia Occupational Therapy Inpatient Evaluation/Re-Eval M1 PT/OT-IP Prior Functional Status Start: 06/08/24 12:38 Freq: NEEDED Status: Active Protocol: Document 06/08/24 12:38 CGR (Rec: 06/08/24 13:04 CGR [id number]) Medical Review Prior Functional Status Medical History Reviewed Yes Communication Pt is an effective verbal communicator. Mobility and Gait Pt was MOD IND with use of a 4WW for mobility around her apartment. She was able to ambulate to the dining room at [facility] and daughter states that she could walk from the car to doctors appoinments but is otherwise fairly sedentairy. Activities of Daily Living and IADL's Pt was IND or MOD I for all ADLs. Pt was able to bathe and dress independently. Daughter manages finances. Social History Household Members family Living Arrangements Apartment/Condo Number of Floors (Floors) One Floor Number of Stairs To Enter/Railing? No steps to apt at [facility] Home Environment Standard Height Toilet,Walk in Shower,Built-In Shower Seat Home Equipment Four Wheel Walker,Hand Held Shower,Grab Bars Near Toilet, Grab Bars In Shower Employment Status Retired Additional Social History Comment Pt sleeps in a flat arroyo size bed without rails. M2 OT-IP Current Condition Start: 06/08/24 12:38 Freq: Status: Active Protocol: Document 06/08/24 12:38 CGR (Rec: 06/08/24 13:04 CGR [id number]) Occupational Therapy Current Condition Current Condition Evaluation Date 06/08/24 Treatment Diagnosis hip contusion after fall Diagnosis Onset Date 06/07/24 Weight Bearing Status Weight Bearing Status Weight Bear as Tolerated M3 OT- IP Subjective and Pain Start: 06/08/24 12:38 Freq: Status: Active Protocol: Document 06/08/24 12:38 CGR (Rec: 06/08/24 13:04 CGR [id number]) OT- Subjective Occupational Therapy Visit Type Type Initial Evaluation Visit Start Time 11:46 Visit Stop Time 12:27 Notes Pt is fearful with mobility. Daughter arrived early in session. Co-eval with P.T. OT Pain Assessment Pain When Pain Assessed During Mobility Pain Present Pain Present Unable to Respond FLACC Pain Scale Face Occasional grimace/frown Legs Uneasy, restless, tense Activity Squirming,shifting M4 OT- IP ADL's Start: 06/08/24 12:38 Freq: Status: Active Protocol: Document 06/08/24 12:38 CGR (Rec: 06/08/24 13:04 CGR [id number]) OT MZF-Psat-Rdcnrcf General Evaluation Self-Feeding Ability Independent Areas Needing Assistance Drinking From Cup/Glass Comments OT Self-Feeding Comments Not meal time but pt drinks water with IND. OT ADL-Grooming Comments OT Grooming Comments Not performed OT ADL-Oral Care Comments Oral Care Comments Not performed OT ADL-Dressing General Eval Lower Body Dressing Ability Total Assistance Areas Needing Assistance Socks Comments OT Dressing Comments supine in bed OT ADL-Toileting General Evaluation Toileting Ability Total Assistance Comments OT Toileting Comments quarles OT ADL-Bathing Comments OT Bathing Comments not performed M5 OT- IP IADL's Start: 06/08/24 12:38 Freq: Status: Active Protocol: Document 06/08/24 12:38 CGR (Rec: 06/08/24 13:04 CGR [id number]) OT-Instrumental Activities of Daily Living Deficits IADL Deficits Identified Deficits Home Safety Awareness Awareness of Need for Assistance at Home Decreased Awareness Ability to Problem Solve Emergency Unable to Problem Solve Situations Medication Management Medication Management Comments concerns regarding pt's ability to perform safely. Money Management Money Management Caregiver Provides Assistance Meal Preparation Meal Preparation Caregiver Provides Assist Project Scheduler Project Scheduler Comments concerns regarding pt's ability to perform safely. Driving Driving Comments Pt does not drive. M6 OT- IP Functional Cognition Start: 06/08/24 12:38 Freq: Status: Active Protocol: Document 06/08/24 12:38 CGR (Rec: 06/08/24 13:04 CGR [id number]) Cognitive Factors Limiting Selfcare Function Cognitive Ability Level of Alertness Alert Patient Orientation Name,Age,Place,Situation Attention Span Ability Capable of Focused Attention, Unable to Sustain Attention Ability to Follow Commands Able to Follow One Step Commands with Increased Time, Able to Follow One Step Commands with Repetition Memory Description Short Term Impaired,Mechanical Apprentice Impaired Cognitive Comments Cognitive Assessment Comments Pt would benefit from SLUMS. Per daughter, pt appears to be at her baseline cognitively at this time. OT- Vision and Hearing OT- Hearing Assessment OT- Hearing Assessment Hearing Impaired,Use of Hearing Aids OT- Vision Assessment Visual Attentiveness WFL Occular Pursuits WFL M7 OT- IP Mobility and Balance Start: 06/08/24 12:38 Freq: Status: Active Protocol: Document 06/08/24 12:38 CGR (Rec: 06/08/24 13:04 CGR [id number]) OT- Bed Mobility Assessment Supine to Sit Supine to Sit Assist Maximum Assistance,2 Person Assistance Sit to Supine Sit to Supine Assist Total Assistance,2 Person Assistance Scooting Scooting to Edge of Bed Maximum Assistance,1 Person Assistance Scooting Up and Down in Bed Total Assistance,2 Person Assistance OT-Transfer Assessment Sit to and From Stand Sit to and from Stand Maximum Assistance,2 Person Assistance Devices Transfer Assistive Devices Gait Belt,Front Wheeled Walker Comments Mobility Comments Pt needed significant assist for mobility in todays session . Pt is fearful with mobility and fights assist when she is scared. Pt was unable to achieve full sit to stand and was leaning against the bed even at her most full stand. Pt was not safe to attempt transfer to chair today. OT- Gait Assessment Comments Gait Ability Comments Not performed OT- Balance Assessment Sitting Balance and Reactions Static Sitting Balance Ability Good Comments Other Balance Tests/Deviations/Treatment Pt was able to balance self : once calmed sitting on the EOB . M8 OT- IP Objective Assessments Start: 06/08/24 12:38 Freq: Status: Active Protocol: Document 06/08/24 12:38 CGR (Rec: 06/08/24 13:04 CGR [id number]) OT Gross Range of Motion Upper Extremity Range of Motion Assessment Right Impaired ROM Impairments R shld pain, pt was unable to raise. Daughter states this is her baseline. OT Strength Upper Extremity Strength Assessment Within Functional Limits Comments Strength Comments Except for the R shld which was not tested, L shld 4/5 and pt grossly 4+/5 for arms and hands. OT- Coordination Assessment Upper Extremity Finger to Nose Test Within Functional Limits Finger Tapping Test Within Functional Limits OT-Muscle Tone Assessment Muscle Tone WNL Yes OT Sensation Assessment Edema Edema Absent M9 OT- IP Assessment and Plan Start: 06/08/24 12:38 Freq: Status: Active Protocol: Document 06/08/24 12:38 CGR (Rec: 06/08/24 13:04 CGR [id number]) OT Summary Assessment and Plan Potential Rehabilitation Potential Fair Analytic Complexity at Evaluation High Summary OT Impairments Pain,Range of Motion,Strength, Balance,Functional Cognition, Functional Mobility,Grooming, Dressing,Toileting,Bathing, Toilet Transfers,Shower Transfers,Activity Tolerance Progress Towards Goals Slow Progress due to Pain,Slow Progress due to Cognition Assessment Summary Pt presents as a high complexity evaluation s/p admit for fall with possible R hip fx, but found to be hip contusion. Pt's fear is her biggest limiting factor but pain is also likely a contributing factor. Pt will benefit from continued therapy services and will likely need SNF upon discharge. Discussed plan with daughter and case management. Goals Self-Feeding Goal Independent Grooming Goal Independent Dressing Goal Independent Toileting Goal Independent Bathing Goal Independent Toilet Transfer Goal Independent Shower Transfer Goal Independent Days to Meet Goals 30 Frequency of Treatment Other frequency 5x per week Treatment Plan OT Treatment Plan ADL Training,Functional Cognition Training,Functional Mobility,Patient/Family Education,Discharge Planning Other Treatment Recommendations and Next 2 person assist, SLUMS, ADLs Treatment Focus seated Discharge Recommendations OT Discharge Recommendations SNF Rehab Transportation Needs at Discharge Wheelchair/Cabulance
[2024-06-08] MEDS: OSELTAMIVIR 75 MG CAPSULE PO (13:30)
--- NOTE | 2024-06-08 16:21 | CM.DANOTE ---
DCP Assessment Note: Pt is a 88yo female, resident of [place], is admitted for suspected hip fx after a GLF, hx of dementia. Pt lives in an apartment. Pt's Primary Care Provider is Dr. Eva Diaz and insurance is Medicare. Reviewed chart and discussed with multidisciplinary team pt's medical status and initial discharge needs. It is reported that pt does not have a fracture and is weightbearing as tolerated at this time. Per PT/OT evaluation, pt is being recommended for SNF and has a pending cognitive assessment on Tuesday as pt is confused. DCP met w/patient at bedside; introduced self and role. Pt was found in bed, stated she is hard of hearing. Seemed somewhat confused, gave consent for this [employer] to speak with her daughter, Vic. DCP spoke with Daughter, Vic, who lives in [place]. Per daughter, pt has no previous hx of SNF but daughter is agreeable to PT/OT recommendations. Pt daughter stated a preference for SNF at [facility] or [facility] if available. PASRR initiated. Plan: Pending SNF acceptance. CM team will follow closely for coordination of discharge plans. Reyna Campbell [facility] Discharge Planning/Care Management CM Discharge Assessment Start: 06/08/24 16:19 Freq: Status: Active Protocol: Document 06/08/24 16:19 MW (Rec: 06/08/24 16:20 MW [id number]) Discharge Planning Assessment Assigned Vp Data AYLCE Orellana DPOA/Assigned Designee Name Vic Melo, Vadim Contact Information [phone] Advance Directives? Yes Advance Directives on File Yes History Provided By Patient,Family Member,Medical Record Has Patient been admitted in last 30 No days? Prior Living Arrangements Apartment/Condo Household Members none Type of transporation used prior to Relies on Others admit Independent with ADL's Yes Is patient alert and oriented? No DME Already Rented / Owned FWW / Walker Discharge Plan Correction Facility Referrals Initiated Correction If patient plan is SNF: Has PASSR been Yes completed? Review Status In Process Please Provide Date Initial DC 06/08/24 Assessment Was Performed Next Review Type Continued Stay Review
[2024-06-08 19:00] VITALS: BP 154/73; PULSE 84; RESP 22; TEMP 37.1; O2SAT 95
[2024-06-08] MEDS: cefTRIAXone 1,000 MG in SODIUM CHLORIDE 0.9% 100 ML 200 MG IV (21:41)
[2024-06-08] MEDS: ZOLPIDEM 5 MG TABLET PO (21:43)
[2024-06-08] MEDS: SODIUM CHLORIDE 0.9% FLUSH 10 ML IV (21:44)
[2024-06-08 23:00] VITALS: BP 141/73; PULSE 87; RESP 20; TEMP 37; O2SAT 94
[2024-06-09 01:37] LABS: Magnesium 1.5 mg/dL (1.6-2.3)
[2024-06-09] MEDS: HALOPERIDOL 5 MG/ML VIAL IV (02:01)
[2024-06-09] MEDS: SODIUM CHLORIDE 0.9% FLUSH 10 ML IV ×3 (02:03→20:18)
[2024-06-09 03:00] VITALS: BP 168/72; PULSE 97; RESP 22; TEMP 36.9; O2SAT 97
[2024-06-09] MEDS: MAGNESIUM SULFATE 2 GM/50 ML PIGGYBACK IV (03:22)
[2024-06-09] MEDS: HYDROMORPHONE 0.5 MG INJ IV (03:25)
[2024-06-09 04:05] VITALS: BP 139/72
[2024-06-09 05:19] LABS: Add Manual Diff / Slide Review NO; Basophils Absolute Auto 0 /uL (0-100); Basophils Percent Auto 0.6 % (0-2); Eosinophils Absolute Auto 0 /uL (0-450); Eosinophils Percent Auto 0.5 % (2-4); Hematocrit 35.5 % (36-46); Hemoglobin 12.2 g/dL (12.0-16.0); Lymphocytes Absolute Auto 1200 /uL (1100-4500); Lymphocytes Percent Auto 18.8 % (25-40); Mean Corpuscular HGB Conc 34.3 % (30-36); Mean Corpuscular Hemoglobin 31.5 PG (26-34); Mean Corpuscular Volume 91.9 fL (80-100); Monocytes Absolute Auto 600 /uL (0-900); Neutrophils Absolute Auto 4500 /uL (1500-7000); Neutrophils Percent Auto 70.1 % (50-75); Platelet Count 143 X10^3/uL (150-400); Red Blood Cell Count 3.86 X10^6/uL (4.0-5.2); Red Cell Distribution Width 14.2 % (11.6-14.8); White Blood Cell Count 6.4 X10^3/uL (4.5-11.0)
[2024-06-09 05:35] LABS: Alanine Aminotransferase 38 IU/L (<35); Albumin 3.3 g/dL (3.5-5.0); Albumin Globulin Ratio 1.2 (1.0-2.8); Alkaline Phosphatase 63 U/L (38-126); Aspartate Aminotransferase 63 IU/L (14-36); BUN Creatinine Ratio 19.8 (6-22); Bilirubin Total 0.6 mg/dL (0.2-1.3); Blood Urea Nitrogen 16 mg/dL (7-17); Carbon Dioxide 19 mmol/L (22-32); Chloride 111 mmol/L (98-107); Estimated Glomerular Filt Rate > 60 mL/min (>60); Globulin 2.8 g/dL (1.7-4.1); Glucose 98 mg/dL (80-110); HEMOLYSIS < 15 (0-50); Magnesium 1.4 mg/dL (1.6-2.3); Potassium 3.3 mmol/L (3.4-5.1); Sodium 138 mmol/L (137-145); Total Protein 6.1 g/dL (6.3-8.2)
[2024-06-09] MEDS: POTASSIUM CHLORIDE 20 MEQ/15 ML UDC 40 MEQ PO (06:39)
[2024-06-09 08:00] VITALS: BP 153/88; PULSE 95; RESP 22; TEMP 35.9; O2SAT 97
--- NOTE | 2024-06-09 08:00 | DI.ECHO.S_ITS ---
[facility] : : [address] : : [place] : : [id number] : : Phone: [phone] Echocardiogram Report + + :Name: JAVIER SHABAZZ Study Date: 06/09/2024 Height: 63 in : :[facility] ReadingLocation: Weight: 181 lb : : Gender: Female BSA: 1.9 m2 : :: 1935 Age: 88 yrs BP: 126/76 mmHg: :Reason For Study: Dyspnea : :Ordering Physician: BERTHA, : :PHU Negrete Performed By: Shasha Jimenes : :Referring: PHU STONE : + + Interpretation Summary Afib with controlled rate. Normal LV size, wall thickness, wall motion and LV systolic function. EF is 60-65%. Moderate LA enlargement; otherwise normal chamber sizes. Aortic sclerosis without significant stenosis. Mild MAC Estimated PA systolic pressure is 38 mm Hg assuming RA pressure of 3 mm Hg. Compared to prior echo 12/10/2022, no significant changes have occurred. Procedure: A two-dimensional transthoracic echocardiogram with color flow and Doppler was performed. The study quality was technically adequate. Comparison is made with the echocardiogram of 2022. The heart rate ranged between 93-101 bpm during the study. Left Ventricle: The left ventricle is normal in size and wall thickness. The ejection fraction is estimated to be 60-65%. Diastolic function could not be accurately assessed due to tachycardia. Right Ventricle: The right ventricle grossly appears normal in size with probable normal systolic function. Atria: The left atrium is moderately dilated. Right atrial size is normal. The interatrial septum grossly appears intact with no obvious evidence for an atrial septal defect. Mitral Valve: The mitral valve leaflets appear borderline thickened, but open well. There is mild to moderate mitral annular calcification. There is trace mitral regurgitation. Aortic Valve: The aortic valve is trileaflet. The aortic valve opens well. The aortic valve is mildly calcified. No aortic regurgitation is present. Tricuspid Valve: The tricuspid valve leaflets are thin and pliable. There is trace tricuspid regurgitation. The right ventricular systolic pressure is estimated to be at least 34 mmHg based on an estimated right atrial pressure of 3 mm Hg. Pulmonic Valve: The pulmonic valve is not well seen, but is grossly normal. There is a trace or physiologic amount of pulmonic regurgitation. Great Vessels: The aortic root is normal size. The ascending aorta is normal in size. The aortic arch is normal in size. The IVC is of normal diameter and collapses greater than 50% with a sniff. This suggests a low right atrial pressure of 3 mm Hg. Pericardium/ Pleura There is no pericardial effusion. There is no pleural effusion. MMode/2D Measurements & Calculations LVIDd: 4.4 cm LVOT diam: 2.0 cm LVIDs: 2.1 cm Ao root diam: 3.1 cm FS: 52.9 % asc Aorta Diam: 3.1 cm EPSS: 0.27 cm Ao Arch Diam (Prox Trans): 2.7 cm IVSd: 0.91 cm LVPWd: 0.65 cm LV liriano. diameter/BSA (cm/m^2): 2.4 LV sys. diameter/BSA (cm/m^2): 1.1 LA A2 area: 23.9 cm2 RA long axis: 5.4 cm LA A4 area: 25.2 cm2 RA area: 18.8 cm2 LA length (vol): 6.1 cm RA vol: 55.2 ml LA vol: 83.7 ml RA : 29.8 ml/m2 LA vol index: 45.2 ml/m2 IVC diam: 2.0 cm RVD1 (basal): 2.7 cm Doppler Measurements & Calculations Ao V2 max: 139.2 cm/sec LVOT Max Tacos: 79.5 cm/sec Ao V2 mean: 95.8 cm/sec LV V1 max P.5 mmHg Ao max P.7 mmHg LV V1 VTI: 15.2 cm Ao mean P.1 mmHg AMBROSE(I,D): 2.0 cm2 Ao V2 VTI: 24.3 cm AMBROSE(V,D): 1.8 cm2 sev ratio: 0.62 AMBROSE indexed to BSA (cm^2/m^2): 1.1 MVA(VTI): 2.6 cm2 TR max tacos: 276.9 cm/sec TR max P.8 mmHg PA V2 max: 108.8 cm/sec PA V2 mean: 63.6 cm/sec PA mean P.0 mmHg PA pr(Accel): 49.9 mmHg MV V2 mean: 55.7 cm/sec SV(LVOT): 48.9 ml MV mean P.7 mmHg MV V2 VTI: 18.4 cm Electronically signed by: Feli Canales M.D. on Reading Physician:06/11/2024 04:32 AM
[2024-06-09] MEDS: MAGNESIUM CHLORIDE 64 MG TABLET 128 MG PO (08:26)
[2024-06-09] MEDS: OSELTAMIVIR 75 MG CAPSULE PO ×2 (08:26→20:18)
--- NOTE | 2024-06-09 11:32 | CM.DPC ---
DCP SNF Planning: Per MD, pt remains with confusion dementia but very pleasant and cooperative and gentle and continues to recommend SNF. PT/OT eval yesterday recommended SNF. SW spoke to [facility] admissions at [facility] and resent referral to review. SW called [facility] admissions and confirmed they received referral and will review right now, although [facility] currently has COVID in their rehab building with 11 positive patients but mild symptoms. Plan: SW to follow for plan of SNF at d/c and confirmation if both [facility] and [facility] can accept and determine Dtr/POA's preference. ALYCE Porras
--- NOTE | 2024-06-09 11:41 | PM.PN.1 ---
Subjective Subjective Interval history: Sylvia is an 88 year female who is seen in evaluation for her left hip. She has a pmhx of dementia, history is limited d/t patients confusion and difficulty following conversation. She is [place]. She sustained a GLF on 06/07/24, Left hip CT done 06/07/24 negative for fracture. She states she has significant hip pain. She reports both hips have been hurting her for a long time now. We discussed possible candidate for elective surgery in the future, she declines. Exam Vital Signs (past 8 hours): - 06/09/24 04:05 06/09/24 07:00 06/09/24 08:00 Temperature 96.7 F L Pulse Rate 95 H Respiratory Rate 22 Blood Pressure 139/72 153/88 H Pulse Oximetry 97 Oxygen Delivery Method Room Air Oxygen Flow Rate 0 Oxygen Delivery Method Room Air Oxygen Flow Rate 0 Narrative Exam Narrative: Limited exam, patient has a difficult time following ques. No sign of any shortening or rotation of either extremity. Pain with internal and external rotation of both hips. Wiggles all toes, SILT LLE. Resp Other: wheezing. Able to speak in complete sentences however. Objective Labs 06/09/24 04:10 06/09/24 04:10 Labs: Laboratory Results - last 24 hr 06/08/24 06/09/24 06/09/24 09:25 01:18 04:10 WBC 6.4 RBC 3.86 L Hgb 12.2 Hct 35.5 L MCV 91.9 MCH 31.5 MCHC 34.3 RDW 14.2 Plt Count 143 L Neut % (Auto) 70.1 Lymph % (Auto) 18.8 L [place] % (Auto) 10.0 Eos % (Auto) 0.5 L Baso % (Auto) 0.6 Neut # (Auto) 4500 Lymph # (Auto) 1200 [place] # (Auto) 600 Eos # (Auto) 0 Baso # (Auto) 0 Sodium 138 Potassium 3.3 L Chloride 111 H Carbon Dioxide 19 L BUN 16 Creatinine 0.81 Estimated GFR > 60 BUN/Creatinine Ratio 19.8 Glucose 98 Calcium 8.0 L Magnesium 1.5 L 1.4 L Total Bilirubin 0.6 AST 63 H ALT 38 H Alkaline Phosphatase 63 Total Protein 6.1 L Albumin 3.3 L Globulin 2.8 Albumin/Globulin Ratio 1.2 Chlamy pneumoniae PCR Not detected Adenovirus (PCR) Not detected B. pertussis DNA (PCR) Not detected B.parapertussis DNA PCR Not detected Coronavirus OC43 (PCR) Not detected Coronavirus HKU1 (PCR) Not detected Coronavirus 229E (PCR) Not detected SARS-CoV-2 (PCR) Not detected Coronavirus NL63 (PCR) Not detected Human Metapneumovir PCR Not detected Influ A (H1N1 Seas) PCR Detected H Influenza Type B (PCR) Not detected M. pneumoniae (PCR) Not detected Parainfluenza 1 (PCR) Not detected Parainfluenza 2 (PCR) Not detected Parainfluenza 3 (PCR) Not detected Parainfluenza 4 (PCR) Not detected RSV (PCR) Not detected Entero/Rhino (PCR) Not detected PFSH Medical History Dementia Social History household members: none Smoking Status: Former smoker second hand exposure: No alcohol intake: current substance use type: does not use Assessment & Plan Assessment & Plan narrative: No immediate need for orthopedic surgical intervention, no acute orthopedic injury at this time. CT negative for fracture. She may WBAT, multi-modal pain management as needed. PT/OT to assist w/ mobility. Discharge disposition per medicine. Time-Based Coding :: [TOTAL MINUTES] spent with patient and on the chart (including review of chart, obtaining history, exam, reviewing outside data, placing orders, documenting exam and treatment plan, and counseling patient) on [DATE].
[2024-06-09 12:00] VITALS: BP 158/77; PULSE 97; RESP 20; TEMP 36.8; O2SAT 96
--- NOTE | 2024-06-09 14:40 | PT.IPTN ---
Current Diagnoses Contusion of left hip, initial encounter (06/07/24) Surgery Performed Operation Date: 06/08/24 17:30 <No data on this case meets the specified criteria> Physical Therapy Treatment Note M2 PT-IP Current Condition Start: 06/08/24 13:26 Freq: NEEDED Status: Active Protocol: Document 06/08/24 11:50 AB (Rec: 06/08/24 13:39 AB [id number]) Physical Therapy Current Condition Current Condition Evaluation Date 06/08/24 Treatment Diagnosis GLF; difficulty in walking Onset Date 06/07/24 M3 PT-IP Subjective Start: 06/08/24 13:26 Freq: NEEDED Status: Active Protocol: Document 06/09/24 14:40 AB (Rec: 06/09/24 16:12 AB [id number]) Subjective Physical Therapy Visit Type Type Treatment Note Visit Start Time 14:40 Visit Stop Time 15:15 Number of INTERACTIVE MEDIA MARKETING SPECIALIST Visits 0 Physical Therapy Visit Comments Patient Comments with confusion but agreed to do PT Therapy Pain Assessment Pain When Pain Assessed During Mobility Location Bilateral Hip Scale Used pain scale not stated; stated that she has bad hips for a long time Description Chronic Pain Behaviors Guarding Pain Management Techniques Distraction,Re-positioning, Timing of Activity with Medications M4 PT-IP Mobility and Gait Start: 06/08/24 13:26 Freq: NEEDED Status: Active Protocol: Document 06/09/24 14:40 AB (Rec: 06/09/24 16:12 AB [id number]) PT-Bed Mobility Assessment Supine to Sit Supine to Sit Maximum Assistance,2 Person Assistance,Head of Bed Elevated,Bedrails Scooting Scooting to Edge of Bed Maximum Assistance PT-Transfer Assessment Sit to and From Stand Sit to and from Stand Maximum Assistance,2 Person Assistance,Use of Upper Extremities Equipment Transfer Assistive Device Gait Belt,Front Wheeled Walker Orthotic/Prosthetic Devices or Brace: No Transfers Transfer Destination Chair Transfer Technique Squat Pivot Transfer Ability Level of Assist Maximum Assistance,Total Assistance,2 Person Assistance ,Use of Upper Extremities Comments Mobility Comments pt supine in bed. completed max A x 2 for supine to sit. c/o bilateral hip pain during mobility. pt required constant cues with all tasks and frequent rest breaks. pt with increase guarding during mobility. increase retrolean in sitting requiring max A for sitting balance. max A x 1-2 for scooting to EOB. pt completed sit<>stand x 2 requiring max A x 2 and max cues. pt with increase trunk guarding and tends to push backwards during standing and unable to stand long enough to complete a stand transfer . assisted pt to chair max A x 2 to total a x 2 for squat pivot transfer . PT in in front of pt and NAC behind. positioned pt to the chair. call light and table placed within reach. Gait Assessment Comments Gait Comments unable at this time M5 PT-IP Objective Assessments Start: 06/08/24 13:26 Freq: NEEDED Status: Active Protocol: Document 06/08/24 11:50 AB (Rec: 06/08/24 13:39 AB [id number]) Orientation Orientation/Cognition Level of Alertness Confusional State Orientation Name Language Function Ability Hard of Hearing Safety Awareness Decreased Safety Awareness Memory Description Short Term Impaired,Donor Services Team Leader Impaired Gross Range of Motion Lower Extremity ROM Assessment Within Functional Limits Strength Lower Extremity Strength Hip 3+/5 Knee 3+/5 Muscle Tone Muscle Tone WNL Yes M6 PT-IP Treatment Start: 06/08/24 13:26 Freq: NEEDED Status: Active Protocol: Document 06/09/24 14:40 AB (Rec: 06/09/24 16:12 AB [id number]) Physical Therapy Treatment Education Education Provided Safety M7 PT-IP Assessment and Plan Start: 06/08/24 13:26 Freq: NEEDED Status: Active Protocol: Document 06/09/24 14:40 AB (Rec: 06/09/24 16:12 AB [id number]) PT Summary Assessment and Plan Potential Rehabilitation Potential Fair Summary Impairments Pain,ROM,Strength,Balance, Coordination,Sensation,Tone, Cognition,Bed Mobility, Transfers,Gait,Activity Tolerance Progress Towards Goals Slow Progress due to Medical Issues,Slow Progress due to Activity Tolerance,Slow Progress - Other Assessment Summary pt continues to require max A x 2 to total Ax2 with bed mobility and transfers. pt will require SNF rehab to improve overall strength and mobility. Goals Bed Mobility Goal Minimal Assistance Transfer Goal Minimal Assistance,Front Wheeled Walker Gait Goal Minimal Assistance,Front Wheel Walker Gait Distance 50 Other Goals improve bed mobility, transfers, ambulation using FWW ~ 150 ft SBA Days to Meet Goals 10 Frequency of Treatment Frequency Of Treatment Once a Day Treatment Plan Physical Therapy Treatment Plan Bed Mobility Training,Transfer Training,Gait Training, Therapeutic Exercise,Balance Retraining,Discharge Planning, Hot or Cold Pack,Neuromuscular Re-ed,Coordination Retraining ,Manual Therapy Precautions Other Precautions falls, droplet precautions ( influenza) Recommendations To Nursing Amount of Assist Needed Mechanical Lift Discharge Recommendations PT Discharge Recommendations SNF Rehab Transportation Needs at Discharge Wheelchair/Cabulance,Stretcher /Ambulance
[2024-06-09] MEDS: QUETIAPINE 25 MG TABLET 12.5 MG PO ×2 (18:27→23:53)
--- NOTE | 2024-06-09 18:50 | P.PN_ITS ---
Subjective Subjective Interval history: 88 yo female w/dementia, HLD presented to ED w/hip pain after 2 falls.? Fortunately, she did not sustaine a fx, but she does have evidence of UTI and influenza A. Patient complains of pain in her hips today. She states that she has always had problems with her hip and secondary to congenital back difficulties. She denies any significant cough or shortness a breath. She did have some sundowning overnight and was given 5 mg of Haldol. She denies any other complaints at present. She did have new onset atrial fibrillation, rate controlled, and an echocardiogram is pending. Exam Vital Signs (past 8 hours): - 06/09/24 12:00 Temperature 98.2 F Pulse Rate 97 H Respiratory Rate 20 Blood Pressure 158/77 H Pulse Oximetry 96 Oxygen Flow Rate 0 Oxygen Delivery Method Room Air Oxygen Flow Rate 0 Narrative Exam Narrative: GEN: Alert and oriented x 3, NAD HEENT:NC, Face symmetric CHEST: Respiratory excursions symmetric, CTAB CV: Irregular, no M/R/G ABD: Soft, NT/ND, BT present in all 4 quadrants, no organomegaly or masses EXTR: warm, well perfused, no C/C/E SKIN: warm and dry, no rash NEURO: Alert and oriented x 3, nonfocal Objective Labs 06/09/24 04:10 06/09/24 04:10 Labs: Laboratory Results - last 24 hr 06/09/24 06/09/24 01:18 04:10 WBC 6.4 RBC 3.86 L Hgb 12.2 Hct 35.5 L MCV 91.9 MCH 31.5 MCHC 34.3 RDW 14.2 Plt Count 143 L Neut % (Auto) 70.1 Lymph % (Auto) 18.8 L [place] % (Auto) 10.0 Eos % (Auto) 0.5 L Baso % (Auto) 0.6 Neut # (Auto) 4500 Lymph # (Auto) 1200 [place] # (Auto) 600 Eos # (Auto) 0 Baso # (Auto) 0 Sodium 138 Potassium 3.3 L Chloride 111 H Carbon Dioxide 19 L BUN 16 Creatinine 0.81 Estimated GFR > 60 BUN/Creatinine Ratio 19.8 Glucose 98 Calcium 8.0 L Magnesium 1.5 L 1.4 L Total Bilirubin 0.6 AST 63 H ALT 38 H Alkaline Phosphatase 63 Total Protein 6.1 L Albumin 3.3 L Globulin 2.8 Albumin/Globulin Ratio 1.2 [facility] Medical History Dementia Social History household members: none Smoking Status: Former smoker second hand exposure: No alcohol intake: current substance use type: does not use Assessment & Plan Assessment & Plan narrative: 1. Ground level fall with hip pain but no fractures Will continue working with therapies as able. Fortunately she did not have any acute fractures based on CT findings. 2. UTI Await final cultures. Continue ceftriaxone. 3. Influenza a Continue Tamiflu 4. New onset atrial fibrillation, rate controlled Await echocardiogram 5. Moderate cognitive deficits with sundowning Will add as needed Seroquel 12.5 mg q.4 hours and 25 mg at bedtime to help reduce symptoms 6. Hypokalemia Repleted per pharmacy Code status Full Prophylaxis Will place on heparin Disposition Will need [facility] facility at discharge Time-Based Coding :: [TOTAL MINUTES] spent with patient and on the chart (including review of chart, obtaining history, exam, reviewing outside data, placing orders, documenting exam and treatment plan, and counseling patient) on [DATE].
[2024-06-09 20:00] VITALS: BP 168/99; PULSE 107; RESP 24; TEMP 36.8; O2SAT 96
[2024-06-09] MEDS: QUETIAPINE 25 MG TABLET PO (20:18)
[2024-06-09] MEDS: cefTRIAXone 1,000 MG in SODIUM CHLORIDE 0.9% 100 ML 200 MG IV (20:18)
[2024-06-09] MEDS: ZOLPIDEM 5 MG TABLET PO (23:53)
[2024-06-10] VITALS: BP 169/73; PULSE 111; TEMP 36.5; O2SAT 96
[2024-06-10 04:00] VITALS: BP 132/80; PULSE 101; RESP 20; TEMP 36.4; O2SAT 94
[2024-06-10 04:58] LABS: Add Manual Diff / Slide Review NO; Basophils Absolute Auto 0 /uL (0-100); Basophils Percent Auto 0.2 % (0-2); Eosinophils Absolute Auto 0 /uL (0-450); Eosinophils Percent Auto 0.1 % (2-4); Hematocrit 37.7 % (36-46); Hemoglobin 13.1 g/dL (12.0-16.0); Lymphocytes Absolute Auto 900 /uL (1100-4500); Lymphocytes Percent Auto 11.3 % (25-40); Mean Corpuscular HGB Conc 34.6 % (30-36); Mean Corpuscular Hemoglobin 31.3 PG (26-34); Mean Corpuscular Volume 90.3 fL (80-100); Monocytes Absolute Auto 700 /uL (0-900); Monocytes Percent Auto 8.9 % (3-14); Neutrophils Absolute Auto 6300 /uL (1500-7000); Neutrophils Percent Auto 79.5 % (50-75); Platelet Count 151 X10^3/uL (150-400); Red Blood Cell Count 4.18 X10^6/uL (4.0-5.2); Red Cell Distribution Width 14.2 % (11.6-14.8); White Blood Cell Count 7.9 X10^3/uL (4.5-11.0)
[2024-06-10 05:15] LABS: Alanine Aminotransferase 40 IU/L (<35); Albumin 3.7 g/dL (3.5-5.0); Albumin Globulin Ratio 1.2 (1.0-2.8); Aspartate Aminotransferase 65 IU/L (14-36); BUN Creatinine Ratio 18.4 (6-22); Blood Urea Nitrogen 16 mg/dL (7-17); Calcium 8.7 mg/dL (8.4-10.2); Carbon Dioxide 17 mmol/L (22-32); Chloride 111 mmol/L (98-107); Estimated Glomerular Filt Rate > 60 mL/min (>60); Glucose 120 mg/dL (80-110); HEMOLYSIS < 15 (0-50); Phosphorous 2.4 mg/dL (2.8-4.1); Potassium 3.6 mmol/L (3.4-5.1); Sodium 139 mmol/L (137-145); Total Protein 6.7 g/dL (6.3-8.2)
[2024-06-10 05:16] LABS: Alkaline Phosphatase 68 U/L (38-126); Bilirubin Total 0.8 mg/dL (0.2-1.3); Magnesium 1.9 mg/dL (1.6-2.3)
[2024-06-10 08:29] VITALS: BP 136/84; PULSE 91; RESP 18; TEMP 36.3; O2SAT 96
[2024-06-10] MEDS: HEPARIN 5,000 UNIT/ML VIAL 5000 UNIT SUBCUT (10:23)
[2024-06-10] MEDS: OSELTAMIVIR 75 MG CAPSULE PO ×2 (10:23→20:53)
[2024-06-10] MEDS: SODIUM,POTASSIUM PHOSPHATES PACKET 2 EACH PO (10:23)
[2024-06-10] MEDS: SODIUM CHLORIDE 0.9% FLUSH 10 ML IV ×2 (10:23→21:18)
--- NOTE | 2024-06-10 11:50 | CM.DPC ---
DCP SNF Cont: Per MD, pt likely stable for d/c once SNF secured and pt making progress. SW called [facility] admissions and left msg inquiring about review and if they can accept. NICHOLAS called [facility] and they reviewed but will need their DNS to make final determination if they can accept tomorrow Tuesday. PASRR previously completed. ALYCE Porras
--- NOTE | 2024-06-10 11:52 | PT-IP ANOTE ---
PT reviews chart and checks on on pt. Pt states she is okay but really wants to nap as she did not sleep last night. Con't PT efforts next date. Recommend cardiac chair positioning or OOB with nsg assistance, lift as needed, for meals.
[2024-06-10 12:00] VITALS: BP 171/80; PULSE 86; RESP 21; TEMP 36.7; O2SAT 97
[2024-06-10 16:00] VITALS: BP 148/72; PULSE 92; RESP 18; TEMP 36.3; O2SAT 96
--- NOTE | 2024-06-10 17:19 | PM.PN.1 ---
Subjective Subjective Interval history: 88 yo female w/dementia, HLD presented to ED w/hip pain after 2 falls.? Fortunately, she did not sustaine a fx, but she does have evidence of a Klebsiella pneumonia UTI and influenza A. Due to her ing and need for 5 mg of Haldol on the overnight of 06/08/2024, Seroquel was added yesterday at a dose of 12.5 mg q.4 hours as needed and 25 mg at bedtime. She received both as needed doses last evening, as well as the scheduled dose. This morning, she was a bit drowsier, but denied complaint. She does note a bit more of a dry cough today which she had not had yesterday. Exam Vital Signs (past 8 hours): - 06/10/24 12:00 06/10/24 16:00 Temperature 98.1 F 97.4 F L Pulse Rate 86 92 H Respiratory Rate 21 18 Blood Pressure 171/80 H 148/72 H Pulse Oximetry 97 96 Oxygen Flow Rate 0 0 Oxygen Delivery Method Room Air Oxygen Flow Rate 0 Narrative Exam Narrative: GEN: Sleepy, but appropriate, NAD HEENT:NC, Face symmetric CHEST: Respiratory excursions symmetric, coarse but CTAB CV: RRR, no M/R/G ABD: Soft, NT/ND, BT present in all 4 quadrants, no organomegaly or masses EXTR: warm, well perfused, no C/C/E SKIN: warm and dry, no rash NEURO: nonfocal Objective Labs 06/10/24 04:16 06/10/24 04:16 Labs: Laboratory Results - last 24 hr 06/10/24 04:16 WBC 7.9 RBC 4.18 Hgb 13.1 Hct 37.7 MCV 90.3 MCH 31.3 MCHC 34.6 RDW 14.2 Plt Count 151 Neut % (Auto) 79.5 H Lymph % (Auto) 11.3 L [place] % (Auto) 8.9 Eos % (Auto) 0.1 L Baso % (Auto) 0.2 Neut # (Auto) 6300 Lymph # (Auto) 900 L [place] # (Auto) 700 Eos # (Auto) 0 Baso # (Auto) 0 Sodium 139 Potassium 3.6 Chloride 111 H Carbon Dioxide 17 L BUN 16 Creatinine 0.87 Estimated GFR > 60 BUN/Creatinine Ratio 18.4 Glucose 120 H Calcium 8.7 Phosphorus 2.4 L Magnesium 1.9 Total Bilirubin 0.8 AST 65 H ALT 40 H Alkaline Phosphatase 68 Total Protein 6.7 Albumin 3.7 Globulin 3.0 Albumin/Globulin Ratio 1.2 [facility] Medical History Dementia Social History household members: none Smoking Status: Former smoker second hand exposure: No alcohol intake: current substance use type: does not use Assessment & Plan Assessment & Plan narrative: 1. Ground level fall with hip pain but no fractures Will continue working with therapies as able. Fortunately she did not have any acute fractures based on CT findings. 2. Klebsiella pneumonia UTI She is received 2/3 doses of ceftriaxone. 3. Influenza a Continue Tamiflu. She has received 4 doses thus far. 4. New onset atrial fibrillation, rate controlled Await echocardiogram 5. Moderate cognitive deficits with sundowning Continue as needed Seroquel 12.5 mg q.4 hours and 25 mg at bedtime to help reduce symptoms 6. Hypokalemia Improved today Code status Full Prophylaxis Continue heparin Disposition Will need detention facility at discharge, await acceptance Time-Based Coding :: [TOTAL MINUTES] spent with patient and on the chart (including review of chart, obtaining history, exam, reviewing outside data, placing orders, documenting exam and treatment plan, and counseling patient) on [DATE].
[2024-06-10 20:00] VITALS: BP 142/86; PULSE 95; RESP 24; TEMP 36.4; O2SAT 96
[2024-06-10] MEDS: cefTRIAXone 1,000 MG in SODIUM CHLORIDE 0.9% 100 ML 200 MG IV (20:53)
[2024-06-10] MEDS: QUETIAPINE 25 MG TABLET PO (20:53)
[2024-06-10] MEDS: ZOLPIDEM 5 MG TABLET PO (20:53)
--- NOTE | 2024-06-10 21:38 | PC.NURSE ---
Addendum entered by Keren Irvin R.N. 06/11/24 06:39: Pt resistant to fluid intake; has not initiated drinking fluids on own and only will take a sip or two when offered. Addendum entered by Keren Irvin R.N. 06/11/24 05:54: Pt slept soundly most of the night, waking only with an occasional non-productive cough. Original Note: NOC: During med pass, pt A&Ox1, experiencing mild auditory and visual hallucinations (Is that man over there still talking? He won't shut up, he talks and talks and talks.), paranoia (A lady came in here all dressed up and asked for my blood pressure, doesn't that seem strange to you?), and confused re: medications. Pt repeatedly stated that she would save her medications for tomorrow. Educated patient on home medications and medication scheduled and was able to redirect and patient accepted medications except heparin, which she denied due to mode of delivery (needle). Pt resting comfortably, belongings within reach, bed low/locked, plan of care continues.
[2024-06-11 02:00] VITALS: BP 164/91; PULSE 94; RESP 24; TEMP 36.6; O2SAT 95
--- NOTE | 2024-06-11 08:21 | PM.PN.1 ---
Subjective Subjective Interval history: Summary: 88 yo female w/dementia, HLD presented to ED w/hip pain after 2 falls.? Fortunately, she did not sustaine a fx, but she does have evidence of a Klebsiella pneumonia UTI and influenza A. S: She is doing well today, her pain is old. She denies any flu symptoms or shortness a breath. Exam Vital Signs (past 8 hours): - 06/11/24 02:00 Temperature 97.8 F Pulse Rate 94 H Respiratory Rate 24 Blood Pressure 164/91 H Pulse Oximetry 95 Oxygen Flow Rate 0 Oxygen Delivery Method Room Air Oxygen Flow Rate 0 Narrative Exam Narrative: NAD, alert and oriented. Fluent speech. Lungs are clear, normal rate and effort. Heart is regular, no murmur gallop or rub. Abdomen is soft, non distended. Extremities are free of edema. Objective Labs 06/10/24 04:16 06/10/24 04:16 [facility] Medical History Dementia Social History household members: none Smoking Status: Former smoker second hand exposure: No alcohol intake: current substance use type: does not use Assessment & Plan Assessment & Plan narrative: 1. Ground level fall with hip pain but no fractures Will continue working with therapies as able. Fortunately she did not have any acute fractures based on CT findings. 2. Klebsiella pneumonia UTI 3rd dose of ceftriaxone today. 3. Influenza a Continue Tamiflu. She has received 4 doses thus far. Last dose today. 4. New onset atrial fibrillation, rate controlled Await echocardiogram 5. Moderate cognitive deficits with sundowning Continue as needed Seroquel 12.5 mg q.4 hours and 25 mg at bedtime to help reduce symptoms 6. Hypokalemia Improved today Code status Full Prophylaxis Continue heparin Disposition Will need senior care facility at discharge, await acceptance. Hopefully 06/12. Time-Based Coding :: [TOTAL MINUTES] spent with patient and on the chart (including review of chart, obtaining history, exam, reviewing outside data, placing orders, documenting exam and treatment plan, and counseling patient) on [DATE].
[2024-06-11] MEDS: HEPARIN 5,000 UNIT/ML VIAL 5000 UNIT SUBCUT (09:53)
[2024-06-11] MEDS: OSELTAMIVIR 75 MG CAPSULE PO (09:53)
[2024-06-11] MEDS: SODIUM CHLORIDE 0.9% FLUSH 10 ML IV (09:54)
[2024-06-11 10:00] VITALS: BP 154/81; PULSE 90; RESP 18; TEMP 36.1; O2SAT 96
--- NOTE | 2024-06-11 11:35 | CM.DPC ---
DCP SNF Planning: Per MD, pt stable for d/c to SNF once SNF secured. SW left [facility] a msg requesting call back. SW called [facility] and they reviewed with their DNS and confirm they can accept the pt today even but do not have their own transport available today but agreeable to pay for private cabulance if available. VERITO Gómez kindly called [facility] and [facility] and both booked up. [facility] has availability for today with pickup at 1430 and to bill [facility] SNF. NICHOLAS called pt's Dtr/JAYE Ho due to pt's baseline dementia and updated on [facility] acceptance and she remains very agreeable and discussed Medicare coverage for SNF and a couple of items to bring that are not valuable. Dtr willing to bring a few things to the SNF after discharge. PASRR signed by . NICHOLAS updated table games shift manager, MANAGER ELECTRICAL, and RN and provided number to call report. VERITO Gómez kindly faxed PASRR, med list, scripts, orders, d/c summ to [facility] to review. Plan: Patient to d/c to [facility] today via [facility] around 1430 before safe return home with Dtr support. ALYCE Porras
--- NOTE | 2024-06-11 11:42 | OT.IPNOTE ---
Attempted to try to get pt up from the bed. Pt resisting movements at times and states just hurts, nursing notified. No charge
--- NOTE | 2024-06-11 11:42 | PT-IP ANOTE ---
PT and OT attempt to get pt to work with therapy for about 10': therapists set up bed, attempt to assist pt in using arms on rails and scooting legs and pt adamantly refuses mobility. Con't PT efforts. If pt con't to refuse working with therapy, consider d/cing acute PT.
--- NOTE | 2024-06-11 12:12 | PC.NURSE ---
Patient sleeping soundly this morning, awakened by this RN and set up with breakfast, patient requesting orange juice and water. Tolerated drinks but did not like food served, requested toast only afterwards. Patient fearful of falling while in bed, 2 PA assist to change brief and provided heather and skin care. Patient alert to self, month and year but did not remember she was in hospital. Patient fell back asleep after we cleaned her up. Bed alarm on for safety, call light within reach.
--- NOTE | 2024-06-11 12:15 | P.DS_ITS ---
History of Present Illness History of Present Illness Chief complaint: Fall-Hip Pain Narrative: From H&P: 88 year old female with past medical history of dementia, HLD and insomnia presents with a ground level fall and left hip pain. Per report, the patient had two falls earlier today. The patient was trying to get out of her chair when she fell the first time but when she was ambulating with her walker she fell again and landed on her left side. The patient did hit her left hip and head but denies any LOC. Also it was noted that the patient was not on any blood thinners. The otherwise denies any chest pain, shortness of breath, fever, chills, nausea, vomiting or diarrhea. In our ER, the patient was hemodynamicaly stable. Labs shows UA that is positive but no sign of sepsis. Xray shows left hip fracutre. EKG shows possible anterolateral ischemia in V3-V4 but repeat EKG did not show any sign of ischemia. CXR was clear. Trops were negative x 2. Patient was given IV Ceftriaxone. Blood cultures drawn. Pain medications given. Orthopedic surgeon consulted and plan for OR later tomorrow. Discharge Providers Provider Date of admission: 06/07/24 21:24 Discharge Date: 06/11/24 Primary care physician: Eva Diaz MD Consults: 06/07/24 20:06 Consult to Occupational Therapy Evaluate & Treat Comment: Physician Instructions: Evaluate and treat Consult to Physical Therapy Evaluate & Treat Comment: Physician Instructions: Evaluate and Treat 06/08/24 21:36 Consult to Dietitian, Adult Routine Comment: Reason For Exam: Corbin score 13 Discharge provider: Dickson Anderson MD Summary Hospital Course Discharge Diagnosis: 1. Ground level fall with hip pain but no fractures, present on admission and improving. Will continue working with therapies as able. Fortunately she did not have any acute fractures based on CT findings. 2. Klebsiella pneumonia UTI, present on admission and improved. Completed 3 doses of ceftriaxone. 3. Influenza a Completed 5 days of Tamiflu. 4. New onset atrial fibrillation, rate controlled Outpatient evaluation with echo. 5. Moderate cognitive deficits with sundowning, stable. 6. Hypokalemia, present on admission and improved. Hospital Course: She was admitted with a ground level fall and hip pain. There was concern for hip fracture but a CT was negative for fracture. Orthopedics was consulted but there was no need for surgical intervention. She had a cough and was found to be flu positive. She was treated with Tamiflu. Her urine was positive for Klebsiella and she was given 3 days of ceftriaxone. In the day of discharge she was stable for discharge for ongoing rehabilitative efforts at [facility]. Status at Discharge Cognitive/behavioral status at discharge: oriented Functional status at discharge: uses cane/walker Overall status at discharge: patient is progressing back to baseline Time Spent with Patient Time spent: Greater than 30 minutes Exam Vital Signs (past 8 hours): - 06/11/24 08:00 06/11/24 10:00 Temperature 97.0 F L Pulse Rate 90 Respiratory Rate 18 Blood Pressure 154/81 H Pulse Oximetry 96 Oxygen Delivery Method Room Air Oxygen Flow Rate 0 Oxygen Delivery Method Room Air Oxygen Flow Rate 0 Narrative Exam Narrative: NAD, alert and oriented. Fluent speech. Lungs are clear, normal rate and effort. Heart is regular, no murmur gallop or rub. Abdomen is soft, non distended. Extremities are free of edema. Objective ECG Impression: Accelerated Junctional rhythm with premature ventricular complexes or fusion complexes Low voltage QRS Septal infarct , age undetermined Imaging Multiple studies:: Radiologist's impression: Hip x-ray: Suspected impacted fracture of the left femoral neck. Hip CT: IMPRESSION: No left hip fracture. Extensive degenerative changes of the left hip account for the appearance on x-ray. Labs 06/10/24 04:16 06/10/24 04:16 [facility] Medical History Dementia Social History household members: none Smoking Status: Former smoker second hand exposure: No alcohol intake: current substance use type: does not use Discharge Assessment & Plan Assessment and Plan Assessment: 1. Ground level fall with hip pain but no fractures, present on admission and improving. Will continue working with therapies as able. Fortunately she did not have any acute fractures based on CT findings. 2. Klebsiella pneumonia UTI, present on admission and improved. Completed 3 doses of ceftriaxone. 3. Influenza a Completed 5 days of Tamiflu. 4. New onset atrial fibrillation, rate controlled Outpatient evaluation with echo. 5. Moderate cognitive deficits with sundowning, stable. 6. Hypokalemia, present on admission and improved. Plan of Treatment: Discharge to [facility] for ongoing rehabilitative efforts. Discharge Plan Discharge Plan Patient Disposition: SNF Transfer to: [facility] Under care of provider: SNF doctor Provider Discharge Comment: Stable for discharge to residential [facility] for ongoing rehabilitation. Discharge orders & Medications Prescriptions: New hydrocodone-acetaminophen 5-325 mg Tablet 1 tab PO Q4H PRN (Reason: Pain, Moderate (4-6)) Qty: 20 0RF Continued zolpidem 5 mg tablet 5 mg PO BEDTIME Qty: 30 5RF Follow up/Referrals: Eva Diaz MD [Primary Care Provider] - Discharge Health Status Multidrug resistant organism: No MDRO Diet/Activity/Treatments Diet: Regular Liquid consistency: Normal/Thin Food texture: Regular Activity: As tolerated. Skin/Wound/Dressing Care Report to your healthcare provider any signs of infection, such as:: chills, fever and night sweats Special Rehabilitation Services Reason for rehabilitation: Recovery r/t decondition Rehab type: Physical therapy and Occupational therapy Visit Report/Discharge Packet Instructions: DI for Urinary Tract Infection (UTI), DI for Influenza -- Adult Stand Alone Forms: Patient Portal/API Discharge Data Primary Care Provider: Eva Diaz
--- NOTE | 2024-06-11 13:30 | PC.NURSE ---
Addendum entered by Ponce Laureano R.N. 06/11/24 15:05: Gave RN report to Chiquis valentin [facility]. Original Note: attempted to call [facility] twice to give RN report ([phone]). Left voicemail with our return number.
== END 2024-06-11 15:45 | DRG 690 ==
LOC: ED 19:09 → AC 21:25
PROVIDERS: Family Medicine; Hospitalist; Student in an Organized Health Care Education/Training Program; Admitting Provider Internal Medicine; Emergency Provider Emergency Medicine; PCP Family Medicine; Referring Provider Emergency Medicine; Visit Provider Internal Medicine
DX: N39.0 Urinary tract infection, site not specified (principal); J81.1 Chronic pulmonary edema; S70.02XA Contusion of left hip, initial encounter; J10.1 Influenza due to other identified influenza virus with other respiratory manifestations; G47.00 Insomnia, unspecified; E86.0 Dehydration; F03.90 Unspecified dementia, unspecified severity, without behavioral disturbance, psychotic disturbance, mood disturbance, and anxiety; E78.5 Hyperlipidemia, unspecified; I48.91 Unspecified atrial fibrillation; E87.6 Hypokalemia; S09.8XXA Other specified injuries of head, initial encounter; B96.1 Klebsiella pneumoniae [K. pneumoniae] as the cause of diseases classified elsewhere; W18.30XA Fall on same level, unspecified, initial encounter; Z87.891 Personal history of nicotine dependence
CPT/HCPCS: 36415; 70450; 71045; 72125; 73502; 73700; 80048; 80053; 81001; 82550; 82962; 83690; 83735; 84100; 84484; 85025; 87040; 87077; 87086; 87186; 87633; 93005; 93306; 96365; 96375; 97163; 97167; 97530; 99285; J0696; J1171; J1630; J1644; J2270; J3475